=== PATIENT | male | born 1945 | race Caucasian/White ===

== ENCOUNTER 2018-03-21 15:57 | Inpatient (IN) | payer MEDICARE, BC ==
[~2018-03-21] VITALS: Ht 167.6 cm; Wt 90.0 kg
[~2018-03-21 15:57] MED LIST: ALPR-624 PO; ASPI-416 PO; AZEL30SP3 BOTHNARES; BENA40TA73 PO; BISO1TAB14 PO; CLOP75TA15 PO; ESCI5TAB PO; FENO145T36 PO; FLO0.4C PO; LEVO50TA67 PO; NOR5T PO; PANT40TA39 PO; PRAM0.253 PO; ROSU20TA PO; TRAM50TA2 PO
[2018-03-21] MEDS ORDERED: aspirin 81mg tab.chew PO ONE (16:15)
[2018-03-21] MEDS: nitroGLYCERIN 0.4mg SUBLingual tab SL PRN ×2 (16:27→16:36)
[2018-03-21 16:40] LABS: BASOPHILS % (AUTO) 0.2 % (0-1); EOSINOPHILS # (AUTO) 0.2 X10'3 (0-0.9); EOSINOPHILS % (AUTO) 2.4 % (0-6); HEMATOCRIT 41.5 % (42.0-52.0); HEMOGLOBIN 14.3 g/dl (14.0-17.9); LYMPHOCYTES # (AUTO) 1.1 X10'3 (1.1-4.8); LYMPHOCYTES % (AUTO) 12.9 % (21-51); MEAN CORPUSCULAR HEMOGLOBIN 31.4 PG (27.0-31.0); MEAN CORPUSCULAR HGB CONC 34.4 % (33.0-36.5); MEAN CORPUSCULAR VOLUME 91.3 FL (78-98); MEAN PLATELET VOLUME 7.3 FL (7.4-10.4); MONOCYTES # (AUTO) 0.7 X10'3 (0-0.9); MONOCYTES % (AUTO) 8.3 % (2-12); NEUTROPHILS # (AUTO) 6.2 X10'3 (1.8-7.7); NEUTROPHILS % (AUTO) 76.2 % (42-75); PLATELET COUNT 227 X10'3 (140-440); RED BLOOD COUNT 4.55 X10'6 (4.70-6.10); RED CELL DISTRIBUTION WIDTH 13.7 % (11.5-14.5); WHITE BLOOD COUNT 8.2 X10'3 (4.5-11.0)
[2018-03-21 16:50] LABS: ALANINE AMINOTRANSFERASE 42 U/L (12-78); ALBUMIN 3.6 G/DL (3.4-5.0); ALBUMIN/GLOBULIN RATIO 1.3 (1.1-1.5); ALKALINE PHOSPHATASE 92 IU/L (46-116); ANION GAP 10 (8-16); ASPARTATE AMINO TRANSFERASE 17 U/L (10-37); BILIRUBIN,TOTAL 0.3 MG/DL (0.1-1.0); BLOOD UREA NITROGEN 19 MG/DL (7-18); BUN/CREATININE RATIO 15.2 (5.4-32.0); CALCIUM 9.2 MG/DL (8.5-10.1); CHLORIDE 108 MMOL/L (99-107); CREATININE 1.25 MG/DL (0.60-1.10); GLUCOSE 181 MG/DL (70-104); POTASSIUM 4.2 MMOL/L (3.5-5.1); SODIUM 144 MMOL/L (135-145); TOTAL CARBON DIOXIDE 25.9 MMOL/L (24-32); TOTAL PROTEIN 6.4 G/DL (6.4-8.2); eGFR 56 ML/MIN
[2018-03-21 16:57] LABS: PARTIAL THROMBOPLASTIN TIME 24 SECONDS (22-32); PROTHROMBIN TIME 10.2 SECONDS (9.0-12.0)
[2018-03-21] MEDS ORDERED: magnesium Cl slow-release 64mg tablet PO PRN (17:30)
[2018-03-21] MEDS ORDERED: mag hydrox/Alum hydrox/simeth 30ml oral suspension PO PRN (17:30)
[2018-03-21] MEDS ORDERED: acetaminophen 325mg tablet PO PRN (17:30)
[2018-03-21] MEDS ORDERED: potassium Cl 40MEQ/NS 500ml 500 ML IV PRN ×2 (17:30)
[2018-03-21] MEDS ORDERED: nitroGLYCERIN 0.4mg SUBLingual tab SL PRN ×2 (17:30→17:35)
[2018-03-21] MEDS ORDERED: ondansetron/PF 4mg/2ml inj IV PRN (17:30)
[2018-03-21] MEDS ORDERED: magnesium 2GM in 50ml NS 50 ML IV PRN (17:30)
[2018-03-21] MEDS ORDERED: magnesium 4gm in 100ml NS 100 ML IV PRN (17:30)
[2018-03-21] MEDS ORDERED: morphine 2 MG/ML inj. syringe IV PRN ×2 (17:30)
[2018-03-21] MEDS ORDERED: magnesium hydroxide 30ml (MOM) UD suspension PO PRN (17:30)
[2018-03-21] MEDS ORDERED: bisacodyl 10mg suppository rectal RC PRN (17:30)
[2018-03-21] MEDS ORDERED: potassium Cl 20 mEq SR tablet PO PRN ×2 (17:30)
[2018-03-21] MEDS ORDERED: regadenoson 0.4mg/5ml syringe IV PRN (17:35)
[2018-03-21] MEDS ORDERED: metoprolol tartrate 1mg/ml inj IV PRN (17:35)
[2018-03-21] MEDS ORDERED: CAFFEINE CITRATE 60 MG/3 ML injection vial IV PRN (17:35)
[2018-03-21] MEDS ORDERED: pantoprazole 40 MG vial IV SCH (17:35)
[2018-03-21] MEDS: sodium chloride 0.45% 1,000 ML IV SCH (17:59)
[2018-03-21 18:00] LABS: HEMOGLOBIN A1C 6.7 % (4.5-6.2)
[2018-03-21] MEDS: clopidogrel 75mg tablet PO SCH (18:02)
[2018-03-21 19:10] VITALS: BP 175/92
[2018-03-21] MEDS: metoprolol tartrate 25mg tablet PO SCH (21:11)
[2018-03-21] MEDS: docusate sod 100mg capsule PO SCH (21:11)
[2018-03-21] MEDS: heparin, porcine 5000 units/ml vial SQ SCH (21:18)
[2018-03-22] VITALS (16 sets, daily range): BP systolic 126–184; BP diastolic 60–80
[2018-03-22 04:57] LABS: ALANINE AMINOTRANSFERASE 32 U/L (12-78); ALBUMIN 3.1 G/DL (3.4-5.0); ALBUMIN/GLOBULIN RATIO 1.3 (1.1-1.5); ALKALINE PHOSPHATASE 73 IU/L (46-116); ANION GAP 8 (8-16); ASPARTATE AMINO TRANSFERASE 15 U/L (10-37); BILIRUBIN,TOTAL 0.4 MG/DL (0.1-1.0); BLOOD UREA NITROGEN 17 MG/DL (7-18); BUN/CREATININE RATIO 18.3 (5.4-32.0); CALCIUM 8.6 MG/DL (8.5-10.1); CHLORIDE 108 MMOL/L (99-107); CHOL/HDL RATIO 2.9 (0.00-4.99); CHOLESTEROL 126 MG/DL (0-200); CREATININE 0.93 MG/DL (0.60-1.10); GLUCOSE 120 MG/DL (70-104); HDL CHOLESTEROL 44 MG/DL (35-60); LDL CHOLESTEROL 64 MG/DL (50-100); MAGNESIUM 1.9 MG/DL (1.5-2.4); POTASSIUM 4.1 MMOL/L (3.5-5.1); SODIUM 143 MMOL/L (135-145); TOTAL CARBON DIOXIDE 26.8 MMOL/L (24-32); TOTAL PROTEIN 5.5 G/DL (6.4-8.2); TRIGLYCERIDES 148 MG/DL (20-135); TROPONIN I < 0.04 NG/ML (0.0-0.05); eGFR 79 ML/MIN
[2018-03-22] MEDS: docusate sod 100mg capsule PO SCH (07:21)
[2018-03-22] MEDS: clopidogrel 75mg tablet PO SCH (07:21)
[2018-03-22] MEDS: heparin, porcine 5000 units/ml vial SQ SCH (07:23)
[2018-03-22] MEDS ORDERED: pantoprazole 40mg Tablet.DR PO SCH (07:30)
[2018-03-22] MEDS: metoprolol tartrate 25mg tablet PO SCH (07:36)
[2018-03-22] MEDS: sodium chloride 0.45% 1,000 ML IV SCH (07:46)
[2018-03-22] MEDS ORDERED: K and/or MAG REPLACEMENT MC SCH (08:00)
[2018-03-22] MEDS ORDERED: aspirin 81mg tablet.DR PO SCH (08:00)
[2018-03-22] MEDS ORDERED: atorvastatin 20mg tablet PO SCH (08:00)
[2018-03-22] MEDS ORDERED: regadenoson 0.4mg/5ml syringe IV ONE ×2 (08:22→10:05)
[2018-03-22] MEDS ORDERED: CAFFEINE CITRATE 60 MG/3 ML injection vial IV ONE ×2 (08:22→10:05)
[2018-03-22] MEDS ORDERED: LORazepam 2 mg/ml vial IV ONE (08:40)
[2018-03-22] MEDS ORDERED: CHOL10002 PO (12:31)
[2018-03-22] MEDS ORDERED: METF-950 PO (14:19)
[2018-03-22] MEDS ORDERED: NITR0.4T51 SL (14:19)
== END 2018-03-22 16:06 | disposition home or self-care (01) | DRG 392 ==
LOC: ER 15:58 → ED HOLD 17:28 → PCU 3S 19:07
PROVIDERS: ADMIT Internal Medicine; ATTEND Internal Medicine
PROC: 4A02XM4 Measurement of Cardiac Total Activity, External Approach (ICD-10-PCS; principal; 2018-03-22)
PROC: 3E033HZ Introduction of Radioactive Substance into Peripheral Vein, Percutaneous Approach (ICD-10-PCS; 2018-03-22)
DX: K21.9 Gastro-esophageal reflux disease without esophagitis (principal); E11.65 Type 2 diabetes mellitus with hyperglycemia; E78.5 Hyperlipidemia, unspecified; F40.240 Claustrophobia; I25.10 Atherosclerotic heart disease of native coronary artery without angina pectoris; N28.9 Disorder of kidney and ureter, unspecified; F41.9 Anxiety disorder, unspecified; I10 Essential (primary) hypertension; I25.2 Old myocardial infarction; Z95.5 Presence of coronary angioplasty implant and graft; Z79.899 Other long term (current) drug therapy; Z79.82 Long term (current) use of aspirin; Z79.890 Hormone replacement therapy; Z87.442 Personal history of urinary calculi
CPT/HCPCS: 36415; 71045; 78452; 80053; 80061; 82948; 83036; 83735; 83880; 84484; 85025; 85610; 85730; 87070; 93005; 93017; 93306; 99285; A9500; C9113; J1644; J2060; J2270; J7030

== ENCOUNTER 2018-09-14 03:24 | Outpatient (CLI) | payer MEDICARE, BC ==
[~2018-09-14 03:24] MED LIST changes: +CHOL10002 PO; +NITR0.4T51 SL; -ROSU20TA PO; +ROSU20TA2 PO
== END 2018-09-14 23:59 | disposition home or self-care (01) ==
LOC: DIABETIC 03:24
PROVIDERS: ATTEND Family Medicine
DX: E11.9 Type 2 diabetes mellitus without complications (principal); Z71.3 Dietary counseling and surveillance; I10 Essential (primary) hypertension; Z87.891 Personal history of nicotine dependence; Z79.82 Long term (current) use of aspirin
CPT/HCPCS: G0108

== ENCOUNTER 2018-09-29 20:12 | Observation (INO) | payer MEDICARE, BC ==
[~2018-09-29] VITALS: Ht 167.6 cm; Wt 84.0 kg
[2018-09-29] MEDS ORDERED: temazepam 15mg capsule PO PRN (21:00)
[2018-09-29] MEDS ORDERED: LORazepam 2 mg/ml vial IV ONE (21:05)
[2018-09-29] MEDS ORDERED: normal saline 1000ML IV soln IVB ONE (21:05)
[2018-09-29] MEDS ORDERED: ondansetron/PF 4mg/2ml inj IV ONE (21:10)
[2018-09-29 21:38] LABS: ALANINE AMINOTRANSFERASE 43 U/L (12-78); ALBUMIN 3.7 G/DL (3.4-5.0); ALBUMIN/GLOBULIN RATIO 1.3 (1.1-1.5); ALKALINE PHOSPHATASE 65 IU/L (46-116); ANION GAP 7 (8-16); ASPARTATE AMINO TRANSFERASE 28 U/L (10-37); BILIRUBIN,TOTAL 0.2 MG/DL (0.1-1.0); BLOOD UREA NITROGEN 24 MG/DL (7-18); CALCIUM 9.9 MG/DL (8.5-10.1); CHLORIDE 105 MMOL/L (99-107); CREATININE 1.26 MG/DL (0.60-1.10); GLUCOSE 106 MG/DL (70-104); POTASSIUM 4.1 MMOL/L (3.5-5.1); SODIUM 140 MMOL/L (135-145); TOTAL CARBON DIOXIDE 28.3 MMOL/L (24-32); TOTAL PROTEIN 6.6 G/DL (6.4-8.2); eGFR 56 ML/MIN
[2018-09-29] MEDS ORDERED: OXYC-150 PO (21:41)
[2018-09-29] MEDS ORDERED: DICL100G30 TOP (21:41)
[2018-09-29] MEDS ORDERED: FLUO15OI15 TOP (21:41)
[2018-09-29] MEDS ORDERED: FENO145T38 PO (21:41)
[2018-09-29] MEDS ORDERED: CHOL10002 PO (21:41)
[2018-09-29] MEDS ORDERED: CYAN50008 PO (21:41)
[2018-09-29] MEDS ORDERED: BISO1TAB39 PO (21:41)
[2018-09-29] MEDS ORDERED: AMLO2.5T2 PO (21:41)
[2018-09-29] MEDS ORDERED: METF500T PO (21:41)
[2018-09-29] MEDS ORDERED: NITR0.4T51 SL (21:41)
[2018-09-29] MEDS ORDERED: FLO0.4C PO (21:41)
[2018-09-29] MEDS ORDERED: ALPR-624 PO (21:41)
[2018-09-29] MEDS ORDERED: CLOP75TA15 PO (21:41)
[2018-09-29] MEDS ORDERED: TRAM50TA2 PO (21:41)
[2018-09-29] MEDS ORDERED: PRAM0.253 PO (21:41)
[2018-09-29] MEDS ORDERED: PANT20TA3 PO (21:41)
[2018-09-29] MEDS ORDERED: ATRNS (21:41)
[2018-09-29] MEDS ORDERED: ROSU20TA2 PO (21:41)
[2018-09-29] MEDS ORDERED: ESCI5TAB PO (21:41)
[2018-09-29] MEDS ORDERED: ONDA4TAB6 PO (21:41)
[2018-09-29] MEDS ORDERED: BENA20TA76 PO (21:41)
[2018-09-29] MEDS ORDERED: LEVO25TA2 PO (21:41)
[2018-09-29 21:42] LABS: BASOPHILS # (AUTO) 0.1 X10'3 (0-0.2); EOSINOPHILS # (AUTO) 0.1 X10'3 (0-0.9); EOSINOPHILS % (AUTO) 1.4 % (0-6); HEMATOCRIT 40.2 % (42.0-52.0); HEMOGLOBIN 13.6 g/dl (14.0-17.9); LYMPHOCYTES # (AUTO) 1.2 X10'3 (1.1-4.8); LYMPHOCYTES % (AUTO) 12.8 % (21-51); MEAN CORPUSCULAR HEMOGLOBIN 30.2 PG (27.0-31.0); MEAN CORPUSCULAR HGB CONC 33.8 g/dL (33.0-36.5); MEAN CORPUSCULAR VOLUME 89.6 FL (78-98); MEAN PLATELET VOLUME 7.4 FL (7.4-10.4); MONOCYTES # (AUTO) 0.8 X10'3 (0-0.9); MONOCYTES % (AUTO) 8.7 % (2-12); NEUTROPHILS # (AUTO) 6.9 X10'3 (1.8-7.7); NEUTROPHILS % (AUTO) 76.1 % (42-75); PLATELET COUNT 254 X10'3 (140-440); RED BLOOD COUNT 4.48 X10'6 (4.70-6.10); RED CELL DISTRIBUTION WIDTH 13.5 % (11.5-14.5); WHITE BLOOD COUNT 9.1 X10'3 (4.5-11.0)
[2018-09-29 21:45] LABS: INR 1.1 INR; PARTIAL THROMBOPLASTIN TIME 25 SECONDS (22-32); PROTHROMBIN TIME 10.7 SECONDS (9.0-12.0)
[2018-09-29] MEDS ORDERED: haloperidol 1mg tablet PO STA (22:11)
--- NOTE | 2018-09-29 22:52 | NUR ---
PT PLACED ON HOSPITAL BED FOR COMFORT
[2018-09-29] MEDS ORDERED: dextrose ORAL solution 15 GM/59 ML bottle PO PRN ×2 (23:00)
[2018-09-29] MEDS ORDERED: acetaminophen 325mg tablet PO PRN ×2 (23:00)
[2018-09-29] MEDS ORDERED: mag hydrox/Alum hydrox/simeth 30ml oral suspension PO PRN (23:00)
[2018-09-29] MEDS ORDERED: magnesium 2GM in 50ml NS 50 ML IV PRN (23:00)
[2018-09-29] MEDS ORDERED: dextrose 50%-water 50ml dispensing syringe IV PRN ×2 (23:00)
[2018-09-29] MEDS ORDERED: insulin Lispro (HumaLOG) vial - multi-dose SQ SCH (23:00)
[2018-09-29] MEDS ORDERED: potassium Cl 20 mEq SR tablet PO PRN ×2 (23:00)
[2018-09-29] MEDS ORDERED: ondansetron/PF 4mg/2ml inj IV PRN (23:00)
[2018-09-29] MEDS ORDERED: glucagon, human recombinant 1mg kit SUBCUT PRN (23:00)
[2018-09-29] MEDS ORDERED: MESSAGE TO PHARMACY PO ONE (23:00)
[2018-09-29] MEDS ORDERED: magnesium 4gm in 100ml NS 100 ML IV PRN (23:00)
[2018-09-29] MEDS ORDERED: magnesium hydroxide 30ml (MOM) UD suspension PO PRN (23:00)
[2018-09-29] MEDS ORDERED: potassium Cl 40MEQ/NS 500ml 500 ML IV PRN ×2 (23:00)
[2018-09-29] MEDS ORDERED: magnesium Cl slow-release 64mg tablet PO PRN (23:00)
[2018-09-29] MEDS ORDERED: normal saline 1000ml 1,000 ML IV ONE (23:00)
[2018-09-29] MEDS ORDERED: Melatonin 3mg tablet PO SCH (23:05)
--- NOTE | 2018-09-29 23:31 | NUR ---
Patient is resting comfortably in bed. Medications provided and patient requests apple juice which is given. Patient displays no signs of confusion at this time.
--- NOTE | 2018-09-30 01:54 | NUR ---
Patient in room ORTHO 4024. I have received report from MORGAN Martinez and had the opportunity to ask questions and assume patient care.
[2018-09-30 02:16] VITALS: BP 137/62
[2018-09-30 02:50] LABS: BASOPHILS # (AUTO) 0.1 X10'3 (0-0.2); BASOPHILS % (AUTO) 0.9 % (0-1); EOSINOPHILS # (AUTO) 0.2 X10'3 (0-0.9); EOSINOPHILS % (AUTO) 2.6 % (0-6); HEMATOCRIT 36.3 % (42.0-52.0); HEMOGLOBIN 12.3 g/dl (14.0-17.9); LYMPHOCYTES # (AUTO) 1.3 X10'3 (1.1-4.8); LYMPHOCYTES % (AUTO) 17.8 % (21-51); MEAN CORPUSCULAR HEMOGLOBIN 30.5 PG (27.0-31.0); MEAN CORPUSCULAR VOLUME 89.6 FL (78-98); MONOCYTES # (AUTO) 0.7 X10'3 (0-0.9); MONOCYTES % (AUTO) 9.3 % (2-12); NEUTROPHILS # (AUTO) 5.1 X10'3 (1.8-7.7); NEUTROPHILS % (AUTO) 69.4 % (42-75); PLATELET COUNT 201 X10'3 (140-440); RED BLOOD COUNT 4.05 X10'6 (4.70-6.10); RED CELL DISTRIBUTION WIDTH 13.7 % (11.5-14.5); WHITE BLOOD COUNT 7.3 X10'3 (4.5-11.0)
[2018-09-30 03:04] LABS: HEMOGLOBIN A1C 6.6 % (4.5-6.2)
[2018-09-30 03:06] LABS: ALBUMIN 3.1 G/DL (3.4-5.0); ANION GAP 6 (8-16); BLOOD UREA NITROGEN 19 MG/DL (7-18); BUN/CREATININE RATIO 15.8 (5.4-32.0); CHLORIDE 107 MMOL/L (99-107); GLUCOSE 126 MG/DL (70-104); MAGNESIUM 1.3 MG/DL (1.5-2.4); POTASSIUM 3.8 MMOL/L (3.5-5.1); SODIUM 141 MMOL/L (135-145); TOTAL CARBON DIOXIDE 28.4 MMOL/L (24-32); eGFR 59 ML/MIN
[2018-09-30 05:20] LABS: CLARITY,URINE CLEAR (Clear); COLOR,URINE YELLOW (Yellow); GLUCOSE, URINE NEGATIVE (Neg); KETONES,URINE NEGATIVE (Neg); LEUKOCYTE ESTERASE ,URINE NEGATIVE (Neg); NITRITES, URINE NEGATIVE (Neg); OCCULT BLOOD,URINE TRACE-INTACT (Neg); PH,URINE 5.5 (4.8-8.0); PROTEIN,URINE NEGATIVE (Neg); UROBILINOGEN,URINE 0.2 E.U/dL (0.2-1.0)
[2018-09-30 05:21] LABS: UA COLLECTION TYPE NON-SPECIFIED
[2018-09-30 05:26] LABS: BACTERIA,URINE NONE SEEN /HPF (Neg); HYALINE CASTS 0-3 /LPF (NEGATIVE); MUCUS STRANDS NONE SEEN /LPF (Neg); RBC,URINE 0-2 /HPF (0-2); SQUAMOUS EPITHELIAL CELL,UR FEW /LPF (FEW); WBC,URINE 0-4 /HPF (0-4)
[2018-09-30 06:00] VITALS: BP 138/64
[2018-09-30] MEDS ORDERED: fluocinonide 0.05% 15gm ointment TP PRN (06:25)
[2018-09-30] MEDS ORDERED: nitroGLYCERIN 0.4mg SUBLingual tab SL PRN (06:25)
[2018-09-30] MEDS ORDERED: traMADol 50MG tablet PO PRN (06:25)
[2018-09-30] MEDS ORDERED: ondansetron 4mg rapidly disintigrating tab PO PRN (06:25)
[2018-09-30] MEDS ORDERED: oxyCODONE/APAP 10/325mg tablet PO PRN (06:25)
--- NOTE | 2018-09-30 06:30 | NUR ---
I have received patient report from Bernadette MORA
--- NOTE | 2018-09-30 06:48 | NUR ---
Problems reprioritized. Patient report given, questions answered & plan of care reviewed with MORGAN Hernandez.
[2018-09-30] MEDS ORDERED: ipratropium 0.06% nasal spray 15ml NS SCH (08:00)
[2018-09-30] MEDS ORDERED: lisinopril 20mg tablet PO SCH (08:00)
[2018-09-30] MEDS ORDERED: enoxaparin 40mg/0.4ml syringe SQ SCH (08:00)
[2018-09-30] MEDS ORDERED: ALPRAZolam 0.5mg tablet PO SCH (08:00)
[2018-09-30] MEDS ORDERED: vitamin D (cholecalciferol) 1,000 unit tablet PO SCH (08:00)
[2018-09-30] MEDS ORDERED: atenolol 50mg tablet PO SCH (08:00)
[2018-09-30] MEDS ORDERED: HYDROchlorothiazide 25mg tablet PO SCH (08:00)
[2018-09-30] MEDS ORDERED: K and/or MAG REPLACEMENT MC SCH (08:00)
[2018-09-30] MEDS ORDERED: amLODIPine 5mg tablet PO SCH (08:00)
[2018-09-30] MEDS ORDERED: HYDROCHLOROTHIAZIDE PO SCH (08:00)
[2018-09-30] MEDS ORDERED: fenofibrate 145mg tablet PO SCH (08:00)
[2018-09-30] MEDS ORDERED: atorvastatin 20mg tablet PO SCH (08:00)
[2018-09-30] MEDS ORDERED: clopidogrel 75mg tablet PO SCH (08:00)
[2018-09-30] MEDS ORDERED: levoTHYROXINE 25mcg tablet PO SCH (08:00)
[2018-09-30] MEDS ORDERED: tamsulosin 0.4mg capsule PO SCH (08:00)
[2018-09-30] MEDS ORDERED: pantoprazole 40mg Tablet.DR PO SCH (08:00)
[2018-09-30] MEDS ORDERED: BISOPROL PO SCH (08:00)
[2018-09-30] MEDS ORDERED: citalopram 20mg tablet PO SCH (08:00)
[2018-09-30 10:00] VITALS: BP 168/65
--- NOTE | 2018-09-30 11:08 | NUR ---
DM consult: Patient's A1c is 6.6; DM ed not warranted at this time. Will continue to follow. Addendum: 09/30/18 at [address] Amended: Links added.
[2018-09-30] MEDS ORDERED: LORazepam 2 mg/ml vial IV ONE (11:35)
[2018-09-30 14:00] VITALS: BP_SYST 136; BP_SYST 141; BP_SYST 158; BP_DIAS 61; BP_DIAS 63; BP_DIAS 65
[2018-09-30] MEDS ORDERED: METF-950 PO (14:54)
--- NOTE | 2018-09-30 15:30 | NUR ---
PATIENT DISCHARGED WITH FAMILY AND HAD ALL BELONGINGS. PATIENT AND FAMILY TOLD TO FOLLOW UP WITH PCP, DR CHI, AND DR BLANCO, [facility]. PATIENT ALREADY HAS METFORMIN AT HOME SO I DIDN'T HAVE TO CALL IN IT FOR THE PATIENT.
[2018-09-30] MEDS ORDERED: MAGN400T6 PO (17:00)
--- NOTE | 2018-09-30 17:05 | NUR ---
DR WHITMAN ORDERED MAGNESIUM FOR PATIENT, I CALLED IT IN AND NOTIFIED FAMILY. PATIENTS MAG WAS LOW TODAY WAS REPLACED 1 TIME THIS MORNING FOR 1.3
[2018-09-30] MEDS ORDERED: Melatonin 3mg tablet PO SCH (21:00)
[2018-09-30] MEDS ORDERED: pramipexole 0.25mg tablet PO SCH (21:00)
[2018-09-30] MEDS ORDERED: insulin glargine (Lantus) pen - multi-dose SQ SCH (21:00)
== END 2018-09-30 15:30 | disposition home health service (06) ==
LOC: ER 20:13 → ED HOLD 22:58 → ORTHO 4S 09-30 01:44
PROVIDERS: ADMIT Hospitalist; ATTEND Family Medicine
DX: R42 Dizziness and giddiness (principal); R07.89 Other chest pain; I25.10 Atherosclerotic heart disease of native coronary artery without angina pectoris; G45.9 Transient cerebral ischemic attack, unspecified; I63.9 Cerebral infarction, unspecified; F41.9 Anxiety disorder, unspecified; I10 Essential (primary) hypertension; I21.9 Acute myocardial infarction, unspecified; E11.9 Type 2 diabetes mellitus without complications; Z98.61 Coronary angioplasty status; Z86.59 Personal history of other mental and behavioral disorders; Z87.442 Personal history of urinary calculi; Z95.5 Presence of coronary angioplasty implant and graft; Z88.5 Allergy status to narcotic agent
CPT/HCPCS: 36415; 70450; 71045; 72125; 80048; 80053; 81001; 82948; 83036; 83735; 84145; 84484; 85025; 85610; 85730; 87070; 93005; 96361; 96372; 96374; 96375; 96376; 99284; G0378; J2060; J2405; J1650; J1815

== ENCOUNTER 2018-12-06 09:34 | Outpatient (CLI) | payer MEDICARE, BC ==
[2018-12-06] VITALS (17 sets, daily range): BP systolic 110–145; BP diastolic 63–84
[~2018-12-06 09:34] MED LIST changes: +AMLO2.5T2 PO; -ASPI-416 PO; +ATRNS; -AZEL30SP3 BOTHNARES; +BENA20TA76 PO; -BENA40TA73 PO; -BISO1TAB14 PO; +BISO1TAB39 PO; +CYAN50008 PO; -FENO145T36 PO; +FENO145T38 PO; +FLUO15OI15 TOP; +LEVO25TA2 PO; -LEVO50TA67 PO; +MAGN400T6 PO; -NOR5T PO; +ONDA4TAB6 PO; +OXYC-150 PO; +PANT20TA3 PO; -PANT40TA39 PO; -TRAM50TA2 PO
== END 2018-12-06 23:59 | disposition home or self-care (01) ==
LOC: CARD DIAG 09:34
PROVIDERS: ATTEND Internal Medicine Interventional Cardiology
DX: R42 Dizziness and giddiness (principal); I10 Essential (primary) hypertension; E11.9 Type 2 diabetes mellitus without complications
CPT/HCPCS: 93660

== ENCOUNTER 2019-05-08 11:08 | Emergency (ER) | payer MEDICARE, BC ==
[~2019-05-08] VITALS: Ht 167.6 cm; Wt 84.1 kg
[~2019-05-08 11:08] MED LIST changes: +MAGN400T28 PO; -MAGN400T6 PO
[2019-05-08] MEDS ORDERED: TRAM50TA2 PO (11:43)
[2019-05-08] MEDS ORDERED: HYDROcodone/acetaminophen 10/325mg tab PO ONE (11:55)
[2019-05-08] MEDS ORDERED: HYDR-4353 PO ×2 (11:55→12:20)
--- NOTE | 2019-05-08 12:02 | NUR ---
YASMIN SPEARSS IN ROOM TO APPLY SPLINT ON LEFT LOWER LEG AND CRUTCH TRAINING.
[2019-05-08 12:38] VITALS: BP 132/70
== END 2019-05-08 12:39 | disposition home or self-care (01) ==
LOC: ER 11:09
DX: S86.812A Strain of other muscle(s) and tendon(s) at lower leg level, left leg, initial encounter (principal); I25.10 Atherosclerotic heart disease of native coronary artery without angina pectoris; I10 Essential (primary) hypertension; I25.2 Old myocardial infarction; E11.9 Type 2 diabetes mellitus without complications; Z88.6 Allergy status to analgesic agent; Z88.8 Allergy status to other drugs, medicaments and biological substances; Z79.899 Other long term (current) drug therapy; Z86.73 Personal history of transient ischemic attack (TIA), and cerebral infarction without residual deficits; Z90.49 Acquired absence of other specified parts of digestive tract; Z98.890 Other specified postprocedural states; Z98.61 Coronary angioplasty status; Z87.442 Personal history of urinary calculi; X58.XXXA Exposure to other specified factors, initial encounter; Y93.89 Activity, other specified; Y92.89 Other specified places as the place of occurrence of the external cause; Y99.0 Civilian activity done for income or pay
CPT/HCPCS: 29505; 99283

== ENCOUNTER 2019-10-01 12:15 | Observation (INO) | payer MEDICARE, BC ==
[~2019-10-01] VITALS: Ht 167.6 cm; Wt 84.1 kg
[2019-10-01] MEDS ORDERED: aspirin 81mg tab.chew PO ONE (12:45)
[2019-10-01 12:51] LABS: BASOPHILS % (AUTO) 0.5 % (0-1); EOSINOPHILS # (AUTO) 0.2 X10'3 (0-0.9); HEMATOCRIT 42.2 % (42.0-52.0); HEMOGLOBIN 14.2 g/dl (14.0-17.9); LYMPHOCYTES # (AUTO) 1.1 X10'3 (1.1-4.8); LYMPHOCYTES % (AUTO) 13.9 % (21-51); MEAN CORPUSCULAR HEMOGLOBIN 30.4 PG (27.0-31.0); MEAN CORPUSCULAR HGB CONC 33.5 g/dL (33.0-36.5); MEAN CORPUSCULAR VOLUME 90.7 FL (78-98); MEAN PLATELET VOLUME 7.1 FL (7.4-10.4); MONOCYTES # (AUTO) 0.6 X10'3 (0-0.9); MONOCYTES % (AUTO) 8.2 % (2-12); NEUTROPHILS % (AUTO) 75.4 % (42-75); PLATELET COUNT 212 X10'3 (140-440); RED BLOOD COUNT 4.65 X10'6 (4.70-6.10); RED CELL DISTRIBUTION WIDTH 13.8 % (11.5-14.5); WHITE BLOOD COUNT 7.9 X10'3 (4.5-11.0)
[2019-10-01] MEDS ORDERED: nitroGLYCERIN 0.4mg SUBLingual tab SL STA (13:02)
[2019-10-01 13:04] LABS: ALANINE AMINOTRANSFERASE 55 U/L (12-78); ALBUMIN 3.5 G/DL (3.4-5.0); ALBUMIN/GLOBULIN RATIO 1.3 (1.1-1.5); ALKALINE PHOSPHATASE 73 IU/L (46-116); ANION GAP 9 (8-16); ASPARTATE AMINO TRANSFERASE 30 U/L (10-37); BILIRUBIN,TOTAL 0.3 MG/DL (0.1-1.0); BLOOD UREA NITROGEN 16 MG/DL (7-18); BUN/CREATININE RATIO 14.7 (5.4-32.0); CALCIUM 9.2 MG/DL (8.5-10.1); CHLORIDE 106 MMOL/L (99-107); CREATININE 1.09 MG/DL (0.60-1.10); GLUCOSE 254 MG/DL (70-104); POTASSIUM 3.7 MMOL/L (3.5-5.1); SODIUM 139 MMOL/L (135-145); TOTAL CARBON DIOXIDE 23.6 MMOL/L (24-32); TOTAL PROTEIN 6.2 G/DL (6.4-8.2); eGFR 66 ML/MIN
[2019-10-01] MEDS ORDERED: LEVO50TA8 PO (13:31)
[2019-10-01] MEDS ORDERED: TRAM50TA2 PO (13:31)
[2019-10-01] MEDS ORDERED: TOLT4CAP14 PO (13:31)
[2019-10-01] MEDS ORDERED: DULO20CA18 PO (13:31)
[2019-10-01] MEDS ORDERED: AMLO10TA13 PO (13:31)
[2019-10-01] MEDS ORDERED: BENA40TA8 PO (13:31)
[2019-10-01] MEDS ORDERED: nitroGLYCERIN 0.4mg SUBLingual tab SL ONE (14:10)
[2019-10-01] MEDS ORDERED: magnesium 4gm in 100ml NS 100 ML IV PRN (15:50)
[2019-10-01] MEDS ORDERED: HYDROcodone/acetaminophen 10/325mg tab PO PRN (15:50)
[2019-10-01] MEDS ORDERED: potassium CL 10mEq/100ml bag 100 ML IV PRN ×2 (15:50)
[2019-10-01] MEDS ORDERED: magnesium 2GM in 50ml NS 50 ML IV PRN (15:50)
[2019-10-01] MEDS ORDERED: HYDROcodone/acetaminophen 5mg/325mg tablet PO PRN (15:50)
[2019-10-01] MEDS ORDERED: dextrose 50%-water 50ml dispensing syringe IV PRN ×2 (15:50)
[2019-10-01] MEDS ORDERED: acetaminophen 325mg tablet PO PRN ×2 (15:50)
[2019-10-01] MEDS ORDERED: nitroGLYCERIN 0.4mg SUBLingual tab SL PRN ×2 (15:50→16:05)
[2019-10-01] MEDS ORDERED: MESSAGE TO PHARMACY PO ONE (15:50)
[2019-10-01] MEDS ORDERED: magnesium Cl slow-release 64mg tablet PO PRN (15:50)
[2019-10-01] MEDS ORDERED: magnesium hydroxide 30ml (MOM) UD suspension PO PRN (15:50)
[2019-10-01] MEDS ORDERED: ondansetron/PF 4mg/2ml inj IV PRN (15:50)
[2019-10-01] MEDS ORDERED: glucagon, human recombinant 1mg kit SUBCUT PRN (15:50)
[2019-10-01] MEDS ORDERED: morphine 2 MG/ML inj. syringe IV PRN (15:50)
[2019-10-01] MEDS ORDERED: mag hydrox/Alum hydrox/simeth 30ml oral suspension PO PRN (15:50)
[2019-10-01] MEDS ORDERED: potassium Cl 20 mEq SR tablet PO PRN ×2 (15:50)
[2019-10-01] MEDS ORDERED: dextrose ORAL solution 15 GM/59 ML bottle PO PRN ×2 (15:50)
[2019-10-01] MEDS ORDERED: insulin Lispro (HumaLOG) vial - multi-dose SQ SCH (15:50)
[2019-10-01 16:25] LABS: HEMOGLOBIN A1C 8.3 % (4.5-6.2)
[2019-10-01 17:30] VITALS: BP 180/90
[2019-10-01] MEDS: oxyCODONE/APAP 10/325mg tablet PO PRN ×2 (17:32→23:59)
[2019-10-01] MEDS: cloNIDine 0.1 mg tablet PO PRN ×2 (17:33→23:59)
--- NOTE | 2019-10-01 17:53 | NUR ---
Patient in room ORTHO 4015. I have received report from Sarah MORA and had the opportunity to ask questions and assume patient care.
--- NOTE | 2019-10-01 17:53 | NUR ---
Admitted to floor, brought up on gurney by ED staff. Patient abulated from bowman to bed without assistance. Vital signs stable, no distress. B/P 180/90, Catapres (clonodine 0.1mg) given as well as Percocert 10/325 for headache 7/10 pain. Pt on tele #13, room air, saline locked 20 ga left forearm. Last BM this am. Accu check 97. faxed tray order CC to dietary.Patient oriented to room & call light. Pt educated on use of call light. MRSA swab completed & 2 RN skin check.
--- NOTE | 2019-10-01 18:00 | NUR ---
Problems reprioritized. Patient report given, questions answered & plan of care reviewed with Jennifer MORA.
--- NOTE | 2019-10-01 18:50 | NUR ---
Patient in room ORTHO 4015. I have received report from Spring MORA and had the opportunity to ask questions and assume patient care.
[2019-10-01] MEDS: K and/or MAG REPLACEMENT MC SCH (19:12)
[2019-10-01] MEDS: magnesium oxide 400mg tablet PO SCH (20:24)
[2019-10-01] MEDS: morphine 2 MG/ML inj. syringe IV PRN (20:24)
[2019-10-01] MEDS: pramipexole 0.25mg tablet PO SCH (20:24)
[2019-10-01] MEDS: pantoprazole 40mg Tablet.DR PO SCH (20:24)
[2019-10-01 20:31] VITALS: BP 166/83
[2019-10-01] MEDS: insulin glargine (Lantus) pen - multi-dose SQ SCH (21:00)
[2019-10-01 21:30] VITALS: BP 159/78
[2019-10-02 01:15] VITALS: BP 144/77
[2019-10-02 01:15] LABS: EOSINOPHILS # (AUTO) 0.3 X10'3 (0-0.9); HEMOGLOBIN 12.9 g/dl (14.0-17.9); MEAN CORPUSCULAR HEMOGLOBIN 30.4 PG (27.0-31.0); MEAN CORPUSCULAR HGB CONC 33.4 g/dL (33.0-36.5); MEAN CORPUSCULAR VOLUME 91.1 FL (78-98); MEAN PLATELET VOLUME 7.2 FL (7.4-10.4); MONOCYTES # (AUTO) 0.7 X10'3 (0-0.9); MONOCYTES % (AUTO) 10.1 % (2-12); NEUTROPHILS # (AUTO) 4.6 X10'3 (1.8-7.7)
[2019-10-02 01:16] LABS: ANION GAP 6 (8-16); BLOOD UREA NITROGEN 14 MG/DL (7-18); BUN/CREATININE RATIO 13.6 (5.4-32.0); CALCIUM 9.1 MG/DL (8.5-10.1); CHLORIDE 107 MMOL/L (99-107); CHOL/HDL RATIO 4.9 (0.00-4.99); CHOLESTEROL 194 MG/DL (0-200); CREATININE 1.03 MG/DL (0.60-1.10); GLUCOSE 155 MG/DL (70-104); HDL CHOLESTEROL 40 MG/DL (35-60); LDL CHOLESTEROL 130 MG/DL (50-100); MAGNESIUM 1.7 MG/DL (1.5-2.4); POTASSIUM 3.8 MMOL/L (3.5-5.1); SODIUM 140 MMOL/L (135-145); TOTAL CARBON DIOXIDE 27.3 MMOL/L (24-32); TRIGLYCERIDES 166 MG/DL (20-135); eGFR 70 ML/MIN
[2019-10-02 01:17] LABS: BASOPHILS % (AUTO) 0.6 % (0-1); EOSINOPHILS % (AUTO) 4.1 % (0-6); HEMATOCRIT 38.7 % (42.0-52.0); LYMPHOCYTES # (AUTO) 1.4 X10'3 (1.1-4.8); LYMPHOCYTES % (AUTO) 20.1 % (21-51); NEUTROPHILS % (AUTO) 65.1 % (42-75); PLATELET COUNT 210 X10'3 (140-440); RED BLOOD COUNT 4.25 X10'6 (4.70-6.10); RED CELL DISTRIBUTION WIDTH 13.9 % (11.5-14.5)
[2019-10-02 05:30] VITALS: BP 126/69
--- NOTE | 2019-10-02 06:23 | NUR ---
Problems reprioritized. Patient report given, questions answered & plan of care reviewed with Sofiya MORA.
[2019-10-02] MEDS ORDERED: HYDROchlorothiazide 25mg tablet PO SCH (08:00)
[2019-10-02] MEDS: K and/or MAG REPLACEMENT MC SCH ×2 (08:00→20:00)
[2019-10-02] MEDS: atorvastatin 20mg tablet PO SCH (08:07)
[2019-10-02] MEDS: magnesium oxide 400mg tablet PO SCH ×2 (08:07→20:19)
[2019-10-02] MEDS: vitamin D (cholecalciferol) 1,000 unit tablet PO SCH (08:07)
[2019-10-02] MEDS: clopidogrel 75mg tablet PO SCH (08:07)
[2019-10-02] MEDS: fenofibrate 145mg tablet PO SCH (08:07)
[2019-10-02] MEDS: ESCITALOPRAM OXALATE 5 MG TABLET PO SCH (08:07)
[2019-10-02] MEDS: enoxaparin 40mg/0.4ml syringe SUBCUT SCH (08:08)
[2019-10-02] MEDS: pantoprazole 40mg Tablet.DR PO SCH ×2 (08:19→20:19)
[2019-10-02] MEDS: tamsulosin 0.4mg capsule PO SCH (08:19)
[2019-10-02] MEDS: oxyCODONE/APAP 10/325mg tablet PO PRN ×2 (08:19→14:37)
--- NOTE | 2019-10-02 09:19 | NUR ---
Page sent to Dr. Hines PAGER ID: [phone] MESSAGE: [phone] Lion Krueger: Pt mentioned that he would be getting a stress test today, no orders as of this time. Is this correct? Thanks, Sofiya wallace [phone]
[2019-10-02] MEDS ORDERED: nitroGLYCERIN 0.4mg SUBLingual tab SL PRN (09:25)
[2019-10-02] MEDS ORDERED: metoprolol tartrate 1mg/ml inj IV PRN (09:25)
[2019-10-02] MEDS ORDERED: aminophylline 250mg/10ml inj. IV PRN (09:25)
[2019-10-02] MEDS ORDERED: regadenoson 0.4mg/5ml syringe IV ONE (09:25)
[2019-10-02 10:00] VITALS: BP 126/80
--- NOTE | 2019-10-02 10:30 | NUR ---
Patient in room ORTHO 4015B. I have received report from DARREN River RN and had the opportunity to ask questions and assume patient care.
--- NOTE | 2019-10-02 14:10 | NUR ---
Stress test cancelled. BP 173/106, HR 102. After ten minutes BP 191/93 HR 102. Hospitalist, Dr. Hines notified. Orders to give AM BP meds now along with Catapress. Reschedule test for tomorrow. Anxiolytic ordered from AM 4/7 prior to test. MORGAN Muhammad notified.
[2019-10-02] MEDS: atenolol 50mg tablet PO SCH (14:22)
[2019-10-02] MEDS: cloNIDine 0.1 mg tablet PO PRN (14:23)
--- NOTE | 2019-10-02 14:25 | NUR ---
pt returned from tian scan, unable to complete BP 191/93 HR 102 per ANALIA Duffy RN...reassessed BP 164/91 HR 88, provided BP meds and Catapres per MD order and Percocet, pt reporting throbbing headache. Will continue to monitor.
--- NOTE | 2019-10-02 16:39 | NUR ---
DM consult, patient with A1c of 8.3, no prior knowledge of DM. Needs written DM education handout with verbal review. Attempted bedside visit and patient not in room at that time, will reattempt prior to discharge. Addendum: 10/02/19 at [address] Amended: Links added.
--- NOTE | 2019-10-02 17:30 | NUR ---
Page Sent PAGER ID: [phone] MESSAGE: [phone] [id number]...CAN I GET AN ORDER FOR AN ANXIOLYTIC FOR PT BEFORE HIS MOY SCAN FOR TOMORROW AM?
[2019-10-02] MEDS: LORazepam 0.5 MG tablet PO ONE (17:50)
[2019-10-02 18:00] VITALS: BP 140/68
--- NOTE | 2019-10-02 18:05 | NUR ---
Received patient report from MORGAN Tuttle. Assumed patient care.
--- NOTE | 2019-10-02 18:09 | NUR ---
MIGUEL A River RN...REVIEWED AND AGREE WITH CHARTING
--- NOTE | 2019-10-02 18:09 | NUR ---
Problems reprioritized. Patient report given, questions answered & plan of care reviewed with MORGAN PERKINS.
--- NOTE | 2019-10-02 18:13 | NUR ---
Problems reprioritized. Patient report given, questions answered & plan of care reviewed with Stephenie MORA.
[2019-10-02] MEDS: morphine 2 MG/ML inj. syringe IV PRN (19:33)
[2019-10-02] MEDS: pramipexole 0.25mg tablet PO SCH (20:19)
[2019-10-02] MEDS: insulin glargine (Lantus) pen - multi-dose SQ SCH (21:00)
[2019-10-02 22:00] VITALS: BP 164/76
[2019-10-03] VITALS (11 sets, daily range): BP systolic 136–193; BP diastolic 58–83
[2019-10-03] MEDS: morphine 2 MG/ML inj. syringe IV PRN (01:16)
[2019-10-03] MEDS: ESCITALOPRAM OXALATE 5 MG TABLET PO SCH (04:38)
--- NOTE | 2019-10-03 04:44 | NUR ---
Pt requested to have lexapro early because it is helpful with anxiety. 0800 med given early.
[2019-10-03] MEDS: cloNIDine 0.1 mg tablet PO PRN ×2 (05:34→09:56)
--- NOTE | 2019-10-03 06:05 | NUR ---
Patient in room ORTHO 4015. I have received report from Eden MORA and had the opportunity to ask questions and assume patient care.
[2019-10-03 06:09] LABS: BASOPHILS # (AUTO) 0.1 X10'3 (0-0.2); BASOPHILS % (AUTO) 0.9 % (0-1); EOSINOPHILS # (AUTO) 0.3 X10'3 (0-0.9); EOSINOPHILS % (AUTO) 3.4 % (0-6); HEMATOCRIT 39.7 % (42.0-52.0); HEMOGLOBIN 13.3 g/dl (14.0-17.9); LYMPHOCYTES # (AUTO) 1.2 X10'3 (1.1-4.8); LYMPHOCYTES % (AUTO) 15.5 % (21-51); MEAN CORPUSCULAR HEMOGLOBIN 30.1 PG (27.0-31.0); MEAN CORPUSCULAR HGB CONC 33.4 g/dL (33.0-36.5); MEAN CORPUSCULAR VOLUME 90.1 FL (78-98); MEAN PLATELET VOLUME 7.2 FL (7.4-10.4); MONOCYTES % (AUTO) 12.4 % (2-12); NEUTROPHILS # (AUTO) 5.3 X10'3 (1.8-7.7); NEUTROPHILS % (AUTO) 67.8 % (42-75); PLATELET COUNT 221 X10'3 (140-440); RED BLOOD COUNT 4.41 X10'6 (4.70-6.10); RED CELL DISTRIBUTION WIDTH 13.5 % (11.5-14.5); WHITE BLOOD COUNT 7.7 X10'3 (4.5-11.0)
--- NOTE | 2019-10-03 06:14 | NUR ---
Patient report given, questions answered and plan of care reviewed with MORGAN Rojas.
[2019-10-03 06:16] LABS: ALBUMIN 3.1 G/DL (3.4-5.0); ANION GAP 6 (8-16); BLOOD UREA NITROGEN 17 MG/DL (7-18); BUN/CREATININE RATIO 16.7 (5.4-32.0); CALCIUM 9.4 MG/DL (8.5-10.1); CHLORIDE 106 MMOL/L (99-107); CREATININE 1.02 MG/DL (0.60-1.10); GLUCOSE 156 MG/DL (70-104); MAGNESIUM 1.9 MG/DL (1.5-2.4); POTASSIUM 3.9 MMOL/L (3.5-5.1); SODIUM 140 MMOL/L (135-145); TOTAL CARBON DIOXIDE 28.5 MMOL/L (24-32); eGFR 71 ML/MIN
[2019-10-03] MEDS: enoxaparin 40mg/0.4ml syringe SUBCUT SCH (07:34)
[2019-10-03] MEDS: atorvastatin 20mg tablet PO SCH (07:35)
[2019-10-03] MEDS: vitamin D (cholecalciferol) 1,000 unit tablet PO SCH (07:35)
[2019-10-03] MEDS: fenofibrate 145mg tablet PO SCH (07:35)
[2019-10-03] MEDS: clopidogrel 75mg tablet PO SCH (07:35)
[2019-10-03] MEDS: atenolol 50mg tablet PO SCH (07:46)
[2019-10-03] MEDS ORDERED: atenolol 50mg tablet PO SCH (08:00)
[2019-10-03] MEDS ORDERED: HYDROchlorothiazide 25mg tablet PO SCH (08:00)
[2019-10-03] MEDS: K and/or MAG REPLACEMENT MC SCH (08:00)
--- NOTE | 2019-10-03 08:15 | NUR ---
sent a page to hospitalist because case assistant called about having pt d/c orders for yesterday cancelled and to make an addendum to yesterdays progress note
--- NOTE | 2019-10-03 09:15 | NUR ---
per lexiscan/nuc med, pt decided not to have lexiscan this morning because of his anxiety, then pt finally calmed down and said that he would have the lexiscan, prema called and asked to 'give pt his one time dose of ativan and check pts bp 30 min after ativan admin, if bp is over 160 please admin pt prn colonidine so pt is able to have his lexiscan'
[2019-10-03] MEDS: LORazepam 0.5 MG tablet PO ONE (09:20)
[2019-10-03] MEDS: magnesium oxide 400mg tablet PO SCH (10:23)
[2019-10-03] MEDS: tamsulosin 0.4mg capsule PO SCH (10:23)
[2019-10-03] MEDS: pantoprazole 40mg Tablet.DR PO SCH (10:23)
[2019-10-03] MEDS ORDERED: LORazepam 0.5 MG tablet PO ONE (10:50)
[2019-10-03] MEDS ORDERED: regadenoson 0.4mg/5ml syringe IV ONE (12:10)
[2019-10-03] MEDS ORDERED: amLODIPine 5mg tablet PO SCH (12:15)
[2019-10-03] MEDS ORDERED: AMLO5TAB4 PO (12:17)
[2019-10-03] MEDS: oxyCODONE/APAP 10/325mg tablet PO PRN (13:33)
--- NOTE | 2019-10-03 15:31 | NUR ---
DM Consult: A1C 8.3. Pt seen by RD for written DM ed w/ RD contact information provided. Pt s/p stress test this AM and reports was DX pre-diabetes and was made newly aware of DX Diabetes A1C 8.6 during PCP visit last week. Pt reports PCP ordered new DM med which pt will start following discharge though pt is unaware of medication name. Pt tired during RD visit and requested RD to return this afternoon. Upon f/u RD visit; pt currently sleeping unable to wake at this time. RN does report pt has had quite taxing day today; pt would benefit from verbal DM ed reinforcement prior to discharge. Addendum: 10/03/19 at [address] Amended: Links added.
--- NOTE | 2019-10-03 18:14 | NUR ---
MIGUEL A RAZO RN...REVIEWED AND AGREE WITH CHARTING
--- NOTE | 2019-10-03 18:32 | NUR ---
Called in new RX: Amlodipine Besylate (Norvasc) 5 mg #30, 1 Tablet PO daily. No refills. [facility] on [place] (due to [facility] closed @ 6pm) Spoke with Ulysses @ [phone]
== END 2019-10-03 18:10 | disposition home or self-care (01) ==
LOC: ER 12:16 → ED HOLD 15:50 → ORTHO 4S 17:24
PROVIDERS: ADMIT Internal Medicine; ATTEND Internal Medicine
DX: R07.89 Other chest pain (principal); I25.10 Atherosclerotic heart disease of native coronary artery without angina pectoris; I25.2 Old myocardial infarction; I10 Essential (primary) hypertension; E78.5 Hyperlipidemia, unspecified; E11.9 Type 2 diabetes mellitus without complications; F41.0 Panic disorder [episodic paroxysmal anxiety]; E66.01 Morbid (severe) obesity due to excess calories; Z86.73 Personal history of transient ischemic attack (TIA), and cerebral infarction without residual deficits; Z87.442 Personal history of urinary calculi; Z90.49 Acquired absence of other specified parts of digestive tract; Z95.5 Presence of coronary angioplasty implant and graft; Z79.82 Long term (current) use of aspirin; Z79.899 Other long term (current) drug therapy; Z88.5 Allergy status to narcotic agent; Z88.8 Allergy status to other drugs, medicaments and biological substances
CPT/HCPCS: 36415; 71045; 78451; 80048; 80053; 80061; 82948; 83036; 83735; 83880; 84484; 85025; 87081; 93005; 96372; 96374; 96375; 96376; 99285; A9500; G0378; J2270; J2405; J2785; 78452; J1650; J1815

== ENCOUNTER 2022-10-10 05:22 | Emergency (ER) | payer BC ==
[~2022-10-10] VITALS: Ht 167.6 cm; Wt 84.1 kg
[~2022-10-10 05:22] MED LIST changes: -ALPR-624 PO; +AMLO10TA13 PO; -AMLO2.5T2 PO; +AMLO5TAB4 PO; -BENA20TA76 PO; +BENA40TA90 PO; -CYAN50008 PO; +CYAN50009 PO; +DULO20CA18 PO; -LEVO25TA2 PO; +LEVO50TA8 PO; -MAGN400T28 PO; +MAGN400T56 PO; -ONDA4TAB6 PO; +PANT20TA18 PO; -PANT20TA3 PO; +TOLT4CAP28 PO; +TRAM50TA2 PO
[2022-10-10] MEDS ORDERED: oxymetazoline 15 ML nasal spray NS ONE (05:30)
[2022-10-10] MEDS ORDERED: LIDOCAINE 2% (20mg/ml) w/EPINEPHRINE 1:200,000-PF 10 ML inj. SQ ONE (06:15)
[2022-10-10] MEDS ORDERED: LIDOCAINE 2%/EPI 1:100,000 inj. Multi-dose 20 ML VIAL SQ ONE (06:20)
[2022-10-10] MEDS ORDERED: LIDOCAINE 2% w/EPI 1:200,000 multi-dose 20ml VIAL SQ ONE (06:25)
--- NOTE | 2022-10-10 07:20 | NUR ---
Dr. Bishop at bedside.
[2022-10-10 08:43] VITALS: BP 134/68
== END 2022-10-10 08:39 | disposition home or self-care (01) ==
LOC: ER 05:22
DX: R04.0 Epistaxis (principal); I25.10 Atherosclerotic heart disease of native coronary artery without angina pectoris; I10 Essential (primary) hypertension; I25.2 Old myocardial infarction; E11.9 Type 2 diabetes mellitus without complications; Z87.442 Personal history of urinary calculi; Z90.49 Acquired absence of other specified parts of digestive tract; Z98.890 Other specified postprocedural states; Z95.5 Presence of coronary angioplasty implant and graft; Z88.5 Allergy status to narcotic agent; Z79.899 Other long term (current) drug therapy
CPT/HCPCS: 30901; 99284

== ENCOUNTER 2024-10-26 18:47 | Inpatient (IN) | payer MEDICARE, BC ==
[~2024-10-26] VITALS: Ht 167.6 cm; Wt 89.5 kg
[~2024-10-26 18:47] MED LIST changes: -AMLO5TAB4 PO; -ATRNS; +BENA40TA72 PO; -BENA40TA90 PO; +BISO-2 PO; -BISO1TAB39 PO; +CLON1PAT14 TOP; -CLOP75TA15 PO; +CLOP75TA34 PO; -DULO20CA18 PO; -ESCI5TAB PO; +FAMO20TA8 PO; -FENO145T38 PO; +FENO160T PO; +FINA5TAB11 PO; -FLO0.4C PO; -FLUO15OI15 TOP; +ISOS30TA84 PO; -MAGN400T56 PO; -OXYC-150 PO; -PANT20TA18 PO; +PANT40TA54 PO; -PRAM0.253 PO; +PRAM0.258 PO; -ROSU20TA2 PO; +ROSU20TA98 PO; +SITA25TA3 PO; +TAMS-55 PO
[2024-10-26 19:18] LABS: BASOPHILS % (AUTO) 0.2 % (0-1); EOSINOPHILS # (AUTO) 0.9 X10'3 (0-0.9); EOSINOPHILS % (AUTO) 6.9 % (0-6); HEMATOCRIT 36.4 % (42.0-52.0); LYMPHOCYTES # (AUTO) 1.4 X10'3 (1.1-4.8); LYMPHOCYTES % (AUTO) 10.6 % (21-51); MEAN CORPUSCULAR HEMOGLOBIN 29.6 PG (27.0-31.0); MEAN CORPUSCULAR HGB CONC 32.9 g/dL (33.0-36.5); MEAN CORPUSCULAR VOLUME 89.9 FL (78-98); MEAN PLATELET VOLUME 7.4 FL (7.4-10.4); MONOCYTES # (AUTO) 1.5 X10'3 (0-0.9); MONOCYTES % (AUTO) 11.8 % (2-12); NEUTROPHILS # (AUTO) 9.1 X10'3 (1.8-7.7); NEUTROPHILS % (AUTO) 70.5 % (42-75); PLATELET COUNT 186 X10'3 (140-440); RED BLOOD COUNT 4.05 X10'6 (4.70-6.10); RED CELL DISTRIBUTION WIDTH 15.2 % (11.5-14.5); WHITE BLOOD COUNT 12.9 X10'3 (4.5-11.0)
[2024-10-26] MEDS: aspirin 81mg tab.chew PO ONE ×2 (19:25→21:36)
[2024-10-26 19:29] LABS: ALANINE AMINOTRANSFERASE 23 U/L (12-78); ALBUMIN/GLOBULIN RATIO 1.2 (1.1-1.5); ALKALINE PHOSPHATASE 63 IU/L (46-116); ANION GAP 2 (8-16); ASPARTATE AMINO TRANSFERASE 12 U/L (10-37); BILIRUBIN,TOTAL 0.2 MG/DL (0.1-1.0); BLOOD UREA NITROGEN 27 MG/DL (7-18); BUN/CREATININE RATIO 23.7 (10.0-20.0); CALCIUM 9.1 MG/DL (8.5-10.1); CHLORIDE 110 MMOL/L (99-107); CREATININE 1.14 MG/DL (0.60-1.10); GLUCOSE 98 MG/DL (70-104); POTASSIUM 4.2 MMOL/L (3.5-5.1); SODIUM 142 MMOL/L (135-145); TOTAL PROTEIN 5.6 G/DL (6.4-8.2); eCRCL 46 ML/MIN; eGFR 62 ML/MIN
[2024-10-26 19:33] LABS: PRO BRAIN NATRIURETIC PEPTIDE 1302 PG/ML (0-450)
--- NOTE | 2024-10-26 20:02 | RADIOLOGY REPORT ---
CHEST RADIOGRAPH Indication: CP Technique: Single frontal view of the chest was obtained Comparison: DI CHEST,SINGLE VIEW on DOS: 03/06/23, CHEST,SINGLE VIEW on DOS: 10/01/19, CHEST,SINGLE VIEW on DOS: 09/29/18 FINDINGS: Lines and Tubes: None Lungs: No focal consolidation. Pleura: No effusion. No pneumothorax. Cardiomediastinal contours: Unremarkable Bones: No acute osseous abnormality. IMPRESSION: 1. No acute cardiopulmonary disease.
--- NOTE | 2024-10-26 21:20 | Physician Documentation ---
History of Present Illness ~ Chief Complaint: Chest Pain Stated Complaint: CHEST PAIN Time Seen by MD: 21:03 OK to notify your PCP?: No Primary Medical Doctor: DR Indu FOX, DR XIONG Source: patient, family, RN notes reviewed Mode of Arrival: POV, Ambulatory Exam Limitations: no limitations HPI 79 year old male, with a history of coronary artery disease, distant HI with stents, diabetes, and hypertension, presents complaining of episodic crushing chest pain beginning yesterday. Pain comes on with exertion, such as shoveling dirt or moving the trash cans. Pain resolves within 2-3 minutes while resting and after taking nitroglycerin. Pain is the same as his previous heart attack. He also reports some sweatiness with the episodes of chest pain, as well as occasional pain radiating to the left neck. He has not had any significant shortness of breath but his blood sugar has been uncontrolled for the last 1.5 months. Patient's roller cleaner is Dr. Fox, who recently performed an echocardiogram to evaluate need for valve replacement. He was last stress test was a few months ago, and was negative. He was taken off of aspirin and Plavix several months ago. Medication Reconciliation Allergies: Coded Allergies: hydrocodone (Verified Allergy, Unknown, HALLUCINATIONS, 10/26/24) Scheduled Amlodipine Besylate (Amlodipine Besylate), 1 TAB PO DAILY, (Reported) Benazepril HCl (Benazepril HCl), 1 TAB PO DAILY, (Reported) Bisoprolol Fumarate/Hctz (Bisoprolol-Hctz 10-6.25 mg Tab), 1 TAB PO DAILY, (Reported) Cholecalciferol (Vitamin D3) (Vitamin D3), 1 TAB PO DAILY, (Reported) Cyanocobalamin (Vitamin B-12) (Vitamin B12), 1 TAB PO DAILY, (Reported) Famotidine (Famotidine), 1 TAB PO DAILY, (Reported) Fenofibrate (Fenofibrate), 1 TAB PO DAILY, (Reported) Finasteride (Finasteride), 1 TAB PO DAILY, (Reported) Levothyroxine Sodium (Levothyroxine Sodium), 1 TAB PO DAILY@0700, (Reported) Pantoprazole Sodium (Pantoprazole Sodium), 1 TAB PO BID, (Reported) Rosuvastatin Calcium (Rosuvastatin Calcium), 1 TAB PO HS, (Reported) Tamsulosin Hcl* (Flomax*), 2 CAPSULE PO DAILY, (Reported) Tolterodine Tartrate (Tolterodine Tartrate ER), 1 CAP PO DAILY, (Reported) Scheduled PRN Nitroglycerin SL* (Nitrostat SL*), 1 TAB SL Q5MIN PRN for Chest pain Q5min PRNx3-call MD, (Reported) Pramipexole Di-Hcl (Pramipexole Dihydrochloride), 3 TAB PO HS PRN for restless legs, (Reported) Tramadol Hcl (Tramadol Hcl), 1 TAB PO Q6H PRN for low back pain, (Reported) Discontinued Medications Clonidine (Clonidine), 1 PATCH TOP Q7D, (Reported) Discontinued Reason: patient no longer taking Clopidogrel Bisulfate (Clopidogrel), 1 TAB PO DAILY, (Reported) Discontinued Reason: patient no longer taking Isosorbide Mononitrate (Isosorbide Mononitrate Er), 1 TAB PO DAILY, (Reported) Discontinued Reason: patient no longer taking Sitagliptin Phosphate* (Januvia*), 1 TAB PO DAILY, (Reported) Discontinued Reason: patient no longer taking Past Medical History Past Medical History: CVA/TIA/Stroke, Coronary Artery Disease, Hypertension, Myocardial Infarction, Kidney Stones, Diabetes, Thyroid (unspecified) Past Surgical History: angioplasty, cholecystectomy, orthopedic surgeries Alcohol Use: None Drug Use: none Lives with: Spouse Lives In: Home Occupation: retired Review of Systems All Other Systems at this time: Reviewed and Negative ROS As stated above in the HPI, otherwise all systems are reviewed and negative. Physical Exam Vital Signs: RN Vital Signs have been reviewed: Yes, Temperature: 97.9, Source: Oral, Heart Rate: 59, Respiratory Rate: 18, BP: 175/76, Pulse Oximetry: 97, Weight: 89.500 Oxygen Flow Rate: 0 Pulse Oximetry Reflects: adequate oxygenation Physical Exam General: The patient is well developed, well nourished, nontoxic appearing and is in no acute distress. Skin: Jennette, warm and dry with no rashes. HEENT: Head was normocephalic and atraumatic. Chest: Clear to auscultation bilaterally without wheezes, rales or rhonchi. No accessory muscle use. No dullness to percussion. Heart: 3/6 pulmonic murmur. Rate regular and rhythmic. S1, S2. Palpation of the chest wall was normal. No rubs or thrills. Abdomen: Soft, nontender and nondistended. Positive bowel sounds. No guarding or rebound. Extremities: No cyanosis, clubbing or edema. The patient moves all extremities. Pulses were equal and symmetric. Neurologic: Motor and sensation grossly intact. Cranial nerves II-XII grossly intact. A & O x4. Psychologic: Normal mood and affect. No agitation. Progress Progress Note 2129: Case discussed with Dr. Cuenca, internal medicine physician, who agrees to evaluate the patient for admission. Results/Orders Reviewed/noted all lab results: Yes Results/Orders Medications Received in ER Medications (Trade) Dose Ordered Sig/Mine Route PRN Reason Start Time Stop Time Status Last Admin Dose Admin (aspirin 81MG chew tablet) 324 mg ONCE ONCE PO 10/26/24 19:15 10/26/24 19:16 DC 10/26/24 19:25 324 MG (aspirin 81MG chew tablet) 324 mg ONCE ONCE PO 10/26/24 21:20 10/26/24 21:23 DC 10/26/24 21:36 324 MG Vital Signs 10/26/24 10/26/24 10/26/24 10/26/24 19:06 20:05 20:10 20:34 Temp 97.9 97.9 Pulse 62 58 59 Resp 16 15 16 18 B/P (MAP) 184/73 151/73 (99) 175/76 (109) Pulse Ox 96 96 97 O2 Flow Rate 0 0 10/26/24 21:38 Pulse 58 Resp 18 B/P (MAP) 169/73 (105) Pulse Ox 96 Laboratory Tests Test 10/26/24 18:55 10/26/24 20:50 10/26/24 21:53 White Blood Count 12.9 H Red Blood Count 4.05 L Hemoglobin 12.0 L Hematocrit 36.4 L Mean Corpuscular Volume 89.9 Mean Corpuscular Hemoglobin 29.6 Mean Corpuscular Hemoglobin Concent 32.9 L Red Cell Distribution Width 15.2 H Platelet Count 186 Mean Platelet Volume 7.4 Neutrophils (%) (Auto) 70.5 Lymphocytes (%) (Auto) 10.6 L Monocytes (%) (Auto) 11.8 Eosinophils (%) (Auto) 6.9 H Basophils (%) (Auto) 0.2 Neutrophils # (Auto) 9.1 H Lymphocytes # (Auto) 1.4 Monocytes # (Auto) 1.5 H Eosinophils # (Auto) 0.9 Basophils # (Auto) 0.0 CBC Comment Prothrombin Time 10.5 INR International Normalized Ratio 1.0 Activated Partial Thromboplast Time 25 Coagulation Comments Sodium Level 142 Potassium Level 4.2 Chloride Level 110 H Carbon Dioxide Level 30.0 Anion Gap 2 L Blood Urea Nitrogen 27 H Creatinine 1.14 H Estimated GFR/1.73 m2 62 BUN/Creatinine Ratio 23.7 H Glucose Level 98 Hemoglobin A1c 6.5 H Calcium Level 9.1 Magnesium Level 1.8 Total Bilirubin 0.2 Aspartate Amino Transf (AST/SGOT) 12 Alanine Aminotransferase (ALT/SGPT) 23 Alkaline Phosphatase 63 Troponin I High Sensitivity 14 14 15 Pro-B-Type Natriuretic Peptide 1302 H Total Protein 5.6 L Albumin 3.0 L Globulin 2.6 L Albumin/Globulin Ratio 1.2 Chemistry Comments Troponin I High Sens Percent Delta 0 7 Troponin I Hi Sens Absolute Change 0 1 EKG/XRAY/CT/US/VASC/MRI EKG : Additional Comment 6857: EKG interpreted by me to show NSR at a rate of 66bpm. Good R wave pro gression. QTc 430ms. No STEMI. Chest X-Ray : Additional Comments 2109: 1 view CXR interpreted by me to show no infiltrates, no effusion, normal cardiac silhouette. CHEST RADIOGRAPH Indication: CP Technique: Single frontal view of the chest was obtained Comparison: DI CHEST,SINGLE VIEW on DOS: 03/06/23, CHEST,SINGLE VIEW on DOS: 10/01/19, CHEST,SINGLE VIEW on DOS: 09/29/18 FINDINGS: Lines and Tubes: None Lungs: No focal consolidation. Pleura: No effusion. No pneumothorax. Cardiomediastinal contours: Unremarkable Bones: No acute osseous abnormality. IMPRESSION: 1. No acute cardiopulmonary disease. Reviewed by me Heart Score: Heart Score Response (Comments) Value History Highly Suspicious 2 EKG Repolarization Disturb 1 Age >65 2 Risk Factors >3 or Hx ASHD 2 Troponin Normal limit 0 Total 7 Medical Decision Making Additional info obtained from: old records Departure Time of Disposition: 21:32 Disposition: 09 ADMITTED INPATIENT Admitted to Inpatient Unit: yes, to hospitalist Impression: Primary Impression: Unstable angina Condition: Fair Education Educated: Patient Educated regarding: diagnosis, treatment, need for follow up Signature Scribe Signature: Scribed for Ulysses Hung MD by Vannesa Jack . 10/26/24 21:31 Attestation: [email or web address] The note accurately reflects work and decisions made by me.Ulysses Hung MD 10/26/24 21:19 ULYSSES HUNG MD October 26, 2024 21:20 VANNESA KINSEY October 26, 2024 21:37
[2024-10-26 21:32] LABS: MAGNESIUM 1.8 MG/DL (1.5-2.4)
[2024-10-26 21:37] LABS: APTT 25 SECONDS (22-32); PROTHROMBIN TIME 10.5 SECONDS (9.0-12.0)
[2024-10-26] MEDS ORDERED: magnesium sulf-water 4G/100mL 100 ML IV PRN (22:25)
[2024-10-26] MEDS ORDERED: magnesium hydroxide 30ml (MOM) UD suspension PO PRN (22:25)
[2024-10-26] MEDS ORDERED: potassium Cl 20 mEq SR tablet PO PRN ×2 (22:25)
[2024-10-26] MEDS ORDERED: potassium Cl 40MEQ/1/2NS 520ml 520 ML IV PRN (22:25)
[2024-10-26] MEDS ORDERED: magnesium Cl slow-release 64mg tablet PO PRN (22:25)
[2024-10-26] MEDS ORDERED: mag hydrox/Alum hydrox/simeth 30ml oral suspension PO PRN (22:25)
[2024-10-26] MEDS ORDERED: ondansetron/PF 4mg/2ml inj IV PRN (22:25)
[2024-10-26] MEDS: HEPARIN DRIP-CARDIAC**PHARMACIST-TO-DOSE IV ONE (22:25)
[2024-10-26] MEDS ORDERED: acetaminophen 325mg tablet PO PRN (22:25)
[2024-10-26] MEDS ORDERED: magnesium sulf-water 2g/50mL 50 ML IV PRN (22:25)
[2024-10-26 22:52] LABS: HEMOGLOBIN A1C 6.5 % (4.5-6.2)
[2024-10-27] VITALS (24 sets, daily range): BP systolic 110–192; BP diastolic 58–97; PULSE 58–85; RESP 13–20; TEMP 97.2–98.7; O2SAT 95–100
[2024-10-27] MEDS: lisinopril 10 MG tablet PO ONE (00:02)
[2024-10-27] MEDS: heparin 10,000 units/1 ML INJ IV ONE (00:13)
[2024-10-27] MEDS: heparin 25,000 UNIT/250ml bag 250 ML IV PRN (00:17)
[2024-10-27] MEDS: MESSAGE TO NURSING IV ONE ×4 (00:18→13:49)
[2024-10-27] MEDS: clopidogrel 300mg tablet PO ONE (00:50)
[2024-10-27] MEDS: morphine 2 MG/ML inj. syringe IV PRN (00:53)
--- NOTE | 2024-10-27 01:33 | HISTORY AND PHYSICAL-Residence ---
History & Physical Providers to CC Resident Creating Document: RINKU CUENCA, RES ~ History of Present Illness Primary Medical Doctor: DR Indu LAMBERT, DR XIONG Reason for Admit\Complaint: Unstable angina History of Present Illness 79 years old male past medical history of hypertension, diabetes mellitus, hyperlipidemia, hypothyroidism, coronary artery disease status post stenting currently to the ED with chief complaint of left-sided chest pain that has been on and off for the past two weeks. He describes the pain to be crushing type of pain that is on and off on the left side of his chest radiating to his left upper extremity and jaw. Mentioned that the pain is triggered by exertion and is relieved by rest and nitro. The pain has been getting worse and is being exacerbated by a minimal exertion and lasting longer. The patient also complains of associated nausea, palpitations and increased perspiration when the pain is triggered. Today the pain started after the patient was getting his trash can back from the sidewalk back to his house. Patient currently complains only of mild chest discomfort in the left side of his chest, nonradiating and denied any associated shortness of breath, palpitations, nausea, vomiting or any other concerns or complaints at the moment. Patient stated that his staff midwife/apprenticeship director Dr. Lambert, had a recent echocardiogram done to evaluate for aortic stenosis. He is not sure about the results of the echocardiogram. The patient also reports that he had a stress test done a approximately more than a year ago which was negative for any reversible ischemia. Patient also reports that he was on aspirin and Plavix in the past which were discontinued eight months ago by his staff midwife/apprenticeship director. Allergies: Coded Allergies: hydrocodone (Verified Allergy, Unknown, HALLUCINATIONS, 10/26/24) Home Medications Home Medications Active Reported Fenofibrate 160 Mg Tablet 1 Tab PO DAILY Levothyroxine Sodium 50 Mcg Tablet 1 Tab PO DAILY@0700 Famotidine 20 Mg Tablet 1 Tab PO DAILY Amlodipine Besylate 10 Mg Tablet 1 Tab PO DAILY Bisoprolol-Hctz 10-6.25 mg Tab (Bisoprolol Fumarate/Hctz) 10 Mg-6.25 Mg Tablet 1 Tab PO DAILY Tramadol Hcl (Tramadol HCl) 50 Mg Tablet 1 Tab PO Q6H PRN Benazepril HCl 40 Mg Tablet 1 Tab PO DAILY Pramipexole Dihydrochloride (Pramipexole Di-Hcl) 0.25 Mg Tablet 3 Tab PO HS PRN Flomax* (Tamsulosin HCl) 0.4 Mg Cap.sr.24h 2 Capsule PO DAILY Tolterodine Tartrate ER (Tolterodine Tartrate) 4 Mg Cap.er.24h 1 Cap PO DAILY Finasteride 5 Mg Tablet 1 Tab PO DAILY Pantoprazole Sodium 40 Mg Tablet.dr 1 Tab PO BID Rosuvastatin Calcium 20 Mg Tablet 1 Tab PO HS Nitrostat SL* (Nitroglycerin) 0.4 Mg Tablet 1 Tab SL Q5MIN PRN Vitamin D3 (Cholecalciferol (Vitamin D3)) 1,000 Unit Tablet 1 Tab PO DAILY 30 Days Vitamin B12 (Cyanocobalamin (Vitamin B-12)) 5,000 Mcg Tab.rapdis 1 Tab PO DAILY Past Medical History Past Medical History Hypotension, diabetes mellitus, hyperlipidemia, hypothyroidism, CAD Past Surgical History Surgical History Comment Stenting of the heart in 2004 and 2008 Past Social History Social History Comment Lives at home with his . Denies smoking or alcohol consumption. Smoking: Non-Smoker Alcohol Use: None Drug Use: None Lives with: Spouse Lives In: Home Occupation: retired ROS All Other Systems: Reviewed and Negative ROS As stated above in the HPI, otherwise all systems are reviewed and negative. Exam Vitals: Vital Signs Date Time Temp Pulse Resp B/P (MAP) Pulse Ox O2 Delivery O2 Flow Rate FiO2 10/27/24 00:53 15 10/27/24 00:02 56 10/26/24 23:30 183/73 (109) 98 10/26/24 20:05 97.9 0 General: General: Awake and Alert, no acute distress. HEENT: Conjunctiva pink, Sclera clear, Mucus Membranes moist. Neck: Supple without masses and tenderness. Resp: Unlabored. Lungs clear to auscultation bilaterally. Heart: Regular Rate and rhythm, normal S1 and S2 with the ejection systolic murmur heard in the aortic area radiating to his carotids. Abdomen: Soft and non tender no organomegaly Extremities: No cyanosis,clubbing or edema. Skin: Warm and Dry. Neurology: No focal motor or sensory deficits. Diagnostic Data Last Recorded Lab Results: 10/26/24 1855 10/26/24 1855 Diagnostic Data: Laboratory Tests Test 10/26/24 18:55 Prothrombin Time 10.5 SECONDS (9.0-12.0) INR International Normalized Ratio 1.0 INR Activated Partial Thromboplast Time 25 SECONDS (22-32) Coagulation Comments Advance Care Planning Advanced Care planning: Add on additional 30 min Additional Plan ACS-unstable angina Serial trending of troponin has been negative. EKG- sinus rhythm with a heart rate of 66. No ST segment changes. Patient's staff midwife/apprenticeship director is Dr. Lambert. He states that he had echocardiogram done one week ago. Patient has mildly elevated proBNP of 1302. Get echocardiogram results from Dr. lambert's office which was done one week ago. Last stress test was more than a year ago. We will plan Lexiscan in the a.m.. Consult the patient's staff midwife/apprenticeship director Dr. Lambert. Currently started the patient on IV heparin drip. He is also getting p.o. aspirin and Plavix. Sublingual nitroglycerin for pain. IV morphine for uncontrolled/severe pain. The patient's heart rate on telemetry monitoring is in the high 50s and hence holding off on beta dana. Continue telemetry monitoring. Follow up with the A1c and lipid panel. Hypertension He is on amlodipine, benazepril, bisoprolol fumarate/hydrochlorothiazide at home. We will restart home medications once his condition stabilizes. Continue to monitor vitals. Hyperlipidemia Hypothyroidism Follow up with the lipid panel TSH levels. CODE STATUS: Full code DVT prophylaxis: IV heparin GI prophylaxis: None Diet: NPO Disposition: Admitting the patient for further evaluation management of acute chest pain most likely secondary to unstable angina. We will schedule Christen stress test tomorrow in the a.m.. Consult the patient's staff midwife/apprenticeship director Dr. Lambert. Rinku Cuenca MD Internal Medicine Resident, PGY-2 Attestation Discussed with resident, agree with assessment and plan spent 35 minutes in care Date of Service: October 27, 2024 Billing Provider: JAMES LAMBERT MD, SURYA PRATIK, RES October 27, 2024 01:33 JAMES LAMBERT MD October 27, 2024 03:04
[2024-10-27] MEDS: amLODIPine 5mg tablet PO ONE ×2 (01:52→03:14)
[2024-10-27] MEDS ORDERED: metoprolol tartrate 1mg/ml inj IV PRN (03:10)
[2024-10-27] MEDS ORDERED: nitroGLYCERIN 0.4mg SUBLingual tab SL PRN ×2 (03:10→07:40)
[2024-10-27] MEDS ORDERED: aminophylline 250mg/10ml inj. IV PRN (03:10)
[2024-10-27 03:20] LABS: BASOPHILS # (AUTO) 0.1 X10'3 (0-0.2); BASOPHILS % (AUTO) 0.5 % (0-1); EOSINOPHILS # (AUTO) 1.1 X10'3 (0-0.9); EOSINOPHILS % (AUTO) 9.2 % (0-6); HEMATOCRIT 35.6 % (42.0-52.0); HEMOGLOBIN 11.8 g/dl (14.0-17.9); LYMPHOCYTES # (AUTO) 1.7 X10'3 (1.1-4.8); MEAN CORPUSCULAR HEMOGLOBIN 29.9 PG (27.0-31.0); MEAN CORPUSCULAR HGB CONC 33.1 g/dL (33.0-36.5); MEAN CORPUSCULAR VOLUME 90.2 FL (78-98); MEAN PLATELET VOLUME 7.4 FL (7.4-10.4); MONOCYTES # (AUTO) 1.5 X10'3 (0-0.9); MONOCYTES % (AUTO) 11.9 % (2-12); NEUTROPHILS % (AUTO) 64.4 % (42-75); PLATELET COUNT 185 X10'3 (140-440); RED BLOOD COUNT 3.95 X10'6 (4.70-6.10); RED CELL DISTRIBUTION WIDTH 15.8 % (11.5-14.5); WHITE BLOOD COUNT 12.5 X10'3 (4.5-11.0)
[2024-10-27 03:25] LABS: ALANINE AMINOTRANSFERASE 21 U/L (12-78); ALBUMIN/GLOBULIN RATIO 1.2 (1.1-1.5); ALKALINE PHOSPHATASE 65 IU/L (46-116); ANION GAP 2 (8-16); ASPARTATE AMINO TRANSFERASE 11 U/L (10-37); BILIRUBIN,TOTAL 0.4 MG/DL (0.1-1.0); BLOOD UREA NITROGEN 25 MG/DL (7-18); BUN/CREATININE RATIO 22.3 (10.0-20.0); CALCIUM 8.7 MG/DL (8.5-10.1); CHLORIDE 107 MMOL/L (99-107); CHOL/HDL RATIO 2.2 (0.00-4.99); CHOLESTEROL 110 MG/DL (0-200); CREATININE 1.12 MG/DL (0.60-1.10); GLUCOSE 93 MG/DL (70-104); HDL CHOLESTEROL 51 MG/DL (35-60); LDL CHOLESTEROL 51 MG/DL (50-100); MAGNESIUM 1.9 MG/DL (1.5-2.4); POTASSIUM 3.7 MMOL/L (3.5-5.1); SODIUM 141 MMOL/L (135-145); TOTAL CARBON DIOXIDE 31.7 MMOL/L (24-32); TOTAL PROTEIN 5.5 G/DL (6.4-8.2); TRIGLYCERIDES 60 MG/DL (20-135); eCRCL 47 ML/MIN; eGFR 63 ML/MIN
[2024-10-27 05:48] LABS: BILIRUBIN,URINE NEGATIVE (Neg); CLARITY,URINE CLEAR (Clear); COLOR,URINE YELLOW (Yellow); GLUCOSE, URINE NEGATIVE (Neg); KETONES,URINE NEGATIVE (Neg); LEUKOCYTE ESTERASE ,URINE NEGATIVE (Neg); NITRITES, URINE NEGATIVE (Neg); OCCULT BLOOD,URINE NEGATIVE (Neg); PROTEIN,URINE NEGATIVE (Neg)
[2024-10-27 05:55] LABS: UA COLLECTION TYPE CLN CATCH MIDSTREAM
--- NOTE | 2024-10-27 06:43 | ELECTROCARDIOGRAPH REPORT ---
[facility] Test Date: 2024-10-26 Test Time: 18:54:53 Pat Name: MANE GIRON Department: EMERGENCY ROOM Room: [place] [address] B Gender: M Service Order Taker: M[place] : 1945 Requested By: THONG ESTRADA Order Number: [id number] Reading MD: Dr. Thong Estrada Measurements Intervals [place] Rate: 66 P: -3 DC: 216 QRS: 31 QRSD: 86 T: 41 QT: 410 QTc: 430 Interpretive Statements Sinus rhythm Borderline prolonged DC interval Probable left atrial enlargement Electronically Signed On 10-27-2024 22:15:[address] Thong Estrada Please click the below link to view image of tracing.
[2024-10-27] MEDS: heparin 10,000 units/1 ML INJ IV PRN ×2 (07:15→13:34)
[2024-10-27] MEDS ORDERED: pramipexole 0.25mg tablet PO PRN (07:40)
[2024-10-27] MEDS: levoTHYROXINE 25mcg tablet PO SCH (07:55)
[2024-10-27] MEDS: cholecalciferol (vitamin D3) 1,000 unit (25mcg) tablet PO SCH (08:00)
[2024-10-27] MEDS: cyanocobalamin 500mcg tablet PO SCH (08:00)
[2024-10-27] MEDS: amLODIPine 5mg tablet PO SCH (08:00)
[2024-10-27] MEDS: famotidine 20mg tablet PO SCH (08:00)
[2024-10-27] MEDS: atorvastatin 20mg tablet PO SCH (08:00)
[2024-10-27] MEDS: docusate sod 100mg capsule PO SCH (08:00)
[2024-10-27] MEDS: oxybutynin 5mg tablet PO SCH (08:00)
[2024-10-27] MEDS: K and/or MAG REPLACEMENT MC SCH (08:00)
[2024-10-27] MEDS: lisinopril 20mg tablet PO SCH (08:00)
[2024-10-27] MEDS: finasteride 5mg tablet PO SCH (08:00)
[2024-10-27] MEDS: tamsulosin 0.4mg capsule PO SCH (08:00)
[2024-10-27] MEDS: fenofibrate 145mg tablet PO SCH (08:30)
[2024-10-27] MEDS: aspirin 81mg tab.chew PO SCH (08:30)
[2024-10-27 08:41] LABS: THYROID STIMULATING HORMONE 3.51 ulU/ml (0.34-4.50)
[2024-10-27] MEDS: regadenoson 0.4mg/5ml syringe IV PRN (09:32)
[2024-10-27] MEDS: PERFLUTREN PROTEIN-A MICROSPHR (Optison) 0.22 MG/ML 3ML VIAL IV ONE (09:40)
[2024-10-27] MEDS ORDERED: heparin 25,000 UNIT/250ml bag 250 ML IV PRN (11:35)
[2024-10-27] MEDS ORDERED: heparin 10,000 units/1 ML INJ IV ONE (11:35)
--- NOTE | 2024-10-27 11:40 | ELECTROCARDIOGRAPH REPORT ---
[facility] Test Date: 2024-10-27 Test Time: 11:36:59 Pat Name: MANE GIRON Department: [facility] Patient ID: [facility]-[id number] Room: [place] [address] B Gender: M Stamp Collector: LEROY : 1945 Requested By: EMELIA DECKER Order Number: [id number] Reading MD: Dr. JYOTI Mittal Measurements Intervals [place] Rate: 64 P: 11 IA: 224 QRS: 36 QRSD: 86 T: 30 QT: 428 QTc: 442 Interpretive Statements Sinus rhythm Prolonged IA interval Probable left atrial enlargement Electronically Signed On 10-27-2024 16:14:[address] JYOTI Mittal Please click the below link to view image of tracing.
--- NOTE | 2024-10-27 11:51 | RADIOLOGY REPORT ---
EXAM: NM NM MOY SCAN; DATE: 10/27/2024 08:40 AM HISTORY: Unstable angina COMPARISON: NM NM MOY SCAN on DOS: 03/07/23, NM MOY SCAN on DOS: 10/02/19, NM MOY SCAN on DOS: 8 TECHNIQUE: A single day protocol was utilized. Resting examination was performed with intravenous ad ministration of 7.8 mCi of technetium 99m MyoView. A gated stress examination was performed with the intravenous administration of 38 mCi of technetium 99m MyoView and 0.4 mg/mL Lexiscan. SPECT imagin g performed at rest followed by same day gated SPECT imaging following pharmacologic stress with 0.4 mg/ml Regadenoson (Lexiscan) IV. FINDINGS: Large severe reversible defect in the inferior wall and adjacent inferolateral wall involving the ape x noted. There is normal left ventricular wall motion. No transient ischemic dilatation. The TID rat io is 1.19. The computer calculates a global left ventricular ejection fraction of 53 %, which is above the 51% l ower limit of normal. IMPRESSION: 1. Large severe acute ischemia involving the inferior and inferolateral solano with involvement of the apex. 2. Unremarkable left ventricular wall motion. 3. Normal left ventricular ejection fraction of 53 %.
[2024-10-27] MEDS: HEPARIN DRIP-CARDIAC**PHARMACIST-TO-DOSE IV ONE (12:16)
[2024-10-27] MEDS: nitroGLYCERIN 0.4mg SUBLingual tab SL PRN (13:30)
[2024-10-27] MEDS ORDERED: verapamil 2.5 mg/ml inj IV ONE (15:01)
[2024-10-27] MEDS ORDERED: iohexol 350MG/ML 100ml bottle IV ONE ×2 (15:01→15:37)
[2024-10-27] MEDS ORDERED: nitroGLYCERIN 500mcg/5mL D5W 5 ML IV ONE (15:01)
[2024-10-27] MEDS ORDERED: LIDOcaine 1% (10mg/ml) 2ml vial ONE (15:01)
[2024-10-27] MEDS ORDERED: midazolam 1 mg/ML 2ml injection ONE ×2 (15:01→15:46)
[2024-10-27] MEDS ORDERED: fentaNYL/PF 50MCG/1 ML 2ML syringe ONE (15:01)
[2024-10-27] MEDS ORDERED: heparin 1,000unit/ml 10ml vial 10 ML ONE (15:01)
[2024-10-27] MEDS ORDERED: ticagrelor 90mg tablet ONE (15:40)
[2024-10-27] MEDS ORDERED: ondansetron/PF 4mg/2ml inj IV PRN (16:35)
[2024-10-27] MEDS ORDERED: proCHLORperazine 10 MG/2 ml inj IV PRN (16:35)
--- NOTE | 2024-10-27 16:56 | CARDIAC CATH REPORT ---
Post Cath Report Providers to CC CC: DEYANIRA CARR MD; JOHN MEDINA MD ~ Date of Procedure: October 27, 2024 Pre-Procedure Diagnosis: Abnormal Stress Test History: Htn, Prior PCI (include date) (2004, 2008) CCS Anginal Class: III NYFA Functional Class: II Procedure Preformed: Left Heart Cath, PTCA / Stent Post Procedure DX Same?: Yes Findings Findings: Procedure Date: 10/27/24 Procedure(s): 1. Selective Right and Left Coronary Angiography 2. Percutaneous coronary intervention of the OM2 branch of the left circumflex coronary artery with a 2.5 mm x 26 mm Anthony Leroy drug eluting stent 3. Conscious Sedation Monitoring for 30 minutes Pre-Cardiac Catheterization Diagnosis: Abnormal Stress test with a large area of inferior and inferolateral wall reversible ischemia also involving the LV apex Post-Cardiac Catheterization Diagnosis: Severe single vessel filling station attendant(s): John Medina MD ([facility]) Indication: The patient is an 79 year old male with a past medical history significant for CAD s/p prior PCI in 2004 and 2008, hypertension, and moderate to severe aortic stenosis (JAKE of 0.94 cm2, peak gradient of 55 mmHg, and mean gradient of 33 mmHg) who presented with angina and underwent a stress test that was positive with noted large area of inferior and inferolateral wall reversible ischemia. The patient is being brought to the cardiac porcelain enamel laborer for further evaluation of their coronary anatomy with a left heart cath and possible percutaneous coronary intervention. Procedure Details: Informed consent was obtained. An Florentino's test was performed pre-procedure and the right radial artery was deemed adequate for arterial access. The right wrist was preped and draped in usual manner. The area was infiltrated with 2% lidocaine. Right radial artery was entered with a terumo sureflo needle and a 6 F sheath was inserted. A cocktail consisting of heparin, nitroglycerin, and verapamil was injected in the sheath. Selective left and right coronary angiogram was performed with a TIG catheter. Following the diagnostic portion of the procedure, a 6 Estonian XBC 3.5 guiding catheter was used to selectively cannulate the left main coronary artery. A [employer] Runthrough wire was advanced through the lesion and parked distal to the lesion. A 2.5 mm x 26 mm [place] Leroy drug eluting stent was placed across the lesion and deployed at 14 gissell. The lesion was reduced from 80% to 0%. Pre- intervention DAVID Flow was noted to be DAVID 3. Post intervention the DAVID flow was noted to be DAVID 3. The patient tolerated the procedure well. There were no complications. Heparin was used for anticoagulation during procedure. At the completion of the procedure, all the wires and catheters were removed. The radial sheath was removed and a trans-radial band was used to achieve hemostasis. The patient was given conscious sedation and monitored for a total of 30 minutes. Catheters Used: 1. 6 [place]ian Shahram/[place] 2. 6 Estonian XBC 3.5 guide All catheters were exchanged over the wire. CORONARY ANGIOGRAM: Left Main: Short vessel that is free of disease and bifurcates into a LAD and LCx. Left Anterior Descending: The left anterior descending coronary artery is a small-caliber vessel with a moderate (40-50%) proximal stenosis. Mild to moderate diffuse disease of the diagonal branch and the distal LAD is seen. Left Circumflex: The circumflex coronary artery is a medium-caliber vessel with a mild (30%) proximal stenosis. The first obtuse marginal branch of the circumflex coronary artery has a widely patent stent in the mid portion. There is noted mild disease distal to the stent. OM2 has noted severe (80%) disease in the mid to distal portion of the vessel. Right Coronary Artery: Dominant vessel with noted moderate (40-50%) diffuse proximal and mid disease. Distal RCA has mild disease. Left Ventricular Angiography: Not performed Hemodynamics: Please refer to porcelain enamel laborer flow sheet. Valve Disease: Moderate to severe aortic stenosis per echocardiogram in the office Percutaneous Coronary Intervention (PCI): A 6 [place]ian XBC 3.5 guiding catheter was used to selectively cannulate the left main coronary artery. A [employer] Runthrough wire was advanced through the lesion and parked distal to the lesion. A 2.5 mm x 26 mm Anthony Leroy drug eluting stent was placed across the lesion and deployed at 14 gissell. The lesion was reduced from 80% to 0%. Pre-intervention DAVID Flow was noted to be DAVID 3. Post intervention the DAVID flow was noted to be DAVID 3. The patient tolerated the procedure well. There were no complications. Heparin was used for anticoagulation during procedure. Complications: None Impression: 1. Right dominant system 2. Mooderate non-obstructive disease of the LAD and RCA. 3. Previous patent stent in OM1 branch of the LCx. 4. Severe (80%) disease of the mid to distal portion of the OM2 branch of the LCx. 5. Successful PCI of the OM2 branch of the LCx with a 2.5 mm x 26 mm Anthony Leroy [place]O. 6. Conscious sedation monitoring for a total of 30 minutes. Recommendations: -Routine post cath care and orders. -Transfer to the floor. -Dual antiplatelet therapy with Brilinta and Aspirin for at least 6 months to one year, then ASA indefinitely. -Continue with medical management. -Aggressive lifestyle and risk factor modifications were stressed to the patient. -Will need outpatient follow-up for his moderate to severe aortic stenosis. At the termination of procedure radial sheath removed and trans-radial band applied with good hemostasis Dominance: Right Moderate Sedation: Yes Complications: None Estimated Blood Loss: less than 5 cc Treatment Plan: PTCA / STENT PCI Patients Priority: Elective Pre-treated Lesion Length (in: 24 Pre DAVID Flow (0-3): 3 Post DAVID Flow (0-3): 3 Condition on leaving Chief Environmental Commitment Officer: Stable JOHN MEDINA MD October 27, 2024 16:56
[2024-10-27] MEDS: normal saline 1000ml 1,000 ML IV SCH (17:27)
[2024-10-27] MEDS ORDERED: clopidogrel 75mg tablet PO SCH (18:00)
[2024-10-27] MEDS ORDERED: hydrALAZINE 20mg/ml inj. IV PRN (18:35)
--- NOTE | 2024-10-27 19:52 | PROGRESS NOTE- Residence ---
Progress Note - Resident Providers to CC Resident Creating Document: ADRIAN RIVERA RES ~ Antibiotic Timeout Antibiotic Ordered?: No Subjective Patient was having the chest pain and EKG changes with T inversion in the morning which is different from the admission EKG. Vitals were stable except for the high blood pressure. Cardiology was consulted and they will do PCI today. Objective Vital Signs Date Time Temp Pulse Resp B/P (MAP) Pulse Ox O2 Delivery O2 Flow Rate FiO2 10/27/24 18:05 98.0 65 18 145/81 (102) 98 Room Air 10/27/24 02:56 0 Result Diagram: 10/27/249 10/27/24 025 Vitals were stable at the moment with BP 142/87 mm Hg, UT 62/minute. General: Well alert, well oriented, not confused, not agitated, not in acute distress, well cooperated during the physical. HEENT: Conjunctive are pink, sclerae clear, no icterus, pupil is equal in both sides, reactive to light, no ear discharge, no pharyngeal erythema or an edema, mouth and lips are moist. Neck: Supple, no JVD, no lymphadenopathy and thyromegaly. Lungs:Equal air entry on both lungs, no additional sounds Heart: S1-S2 regular sinus rhythm and, regular rate, no gallops, no rubs, no murmurs Abdomen: No visible peristalsis, Bowel sounds present on auscultation, soft, nontender, no guarding, no rigidity Extremities: No obvious deformities, no pitting edema bilaterally, capillary refill intact, able to wiggle toes both sides, peripheral pulsations are intact on both sides OPERATIONAL REVIEW SERGEANT: No focal neurological deficits, no motor and sensory weakness in all 4 extremities, could move all 4 extremities Musculoskeletal: No joint swelling, deformities, inflammations, and no scoliosis and back tenderness Skin: No active skin lesions and rashes Coagulation Studies Laboratory Tests Test 10/26/24 18:55 10/27/24 12:40 Prothrombin Time 10.5 SECONDS (9.0-12.0) INR International Normalized Ratio 1.0 INR Activated Partial Thromboplast Time 25 SECONDS (22-32) APTT (Heparin Protocol) 33 SECONDS (45-60) L Coagulation Comments Assessment Assessment An 79 years old male with a past medical history significant CAD s/p PCI stent in 2004 and 2008, hypertension, ttyvgnqf-ox-vjwufn aortic stenosis, hyperlipidemia, T2 DM, hypothyroidism, presented with atypical angina who underwent cardiac stress test which showed positive with large area of inferior and inferolateral wall reversible ischemia on 10/27/[address] Char Fox and Dr Allison. Plan Plan # Sever single Vessel CAD # Hx of S/p PCI stents in 2004 and 2008 -positive abnormal stress test with a large area of inferior and inferolateral wall reversible ischemia also involving LV apex -cardiac catheterization showed LAD 40-50% proximal stenosis, left circumflex 30% proximal stenosis, OM2 severe 80% stenosis -Onynx [place] drug eluting stent was placed at the left main coronary artery. -cardiology recommended for postprocedure with dual antiplatelet therapy aspirin and ticagrelor for at least six months to one year and ASA indefinitely lifelong, medical management, cardiovascular aggressive lifestyle and risk factor modifications, cardiology follow up for the jmsinznq-hq-kiplxh aortic stenosis. # HTN -control high blood pressure with IV hydralazine for BP> 180/80 mm Hg. -continue home medications for high blood pressure # hyperlipidemia -lipid profile in a good shape with LDL 51, continue maintaining LDL <55 -continue fenofibrate and atorvastatin 80 mg daily. # hypothyroidism on levothyroxine replacement -TSH WNL, continue levothyroxine 50 mcg in the emergency dispatch operator apart from the other medications and breakfast at least 30-60 minutes # nonspecific leukocytosis # hypochromic microcytic anemia -possible from the active/acute stress reaction -daily monitoring CBC, trending hemoglobin after procedure # TONY on CKD stage 3-mostly from renal tubular stasis # T2 dm with HGB A1c 6.5 on 10/26/2024 # protein calorie malnutrition -baseline creatinine 0.93, today creatinine 1.12, BUN 25, ratio> 20 -maintain optimal hydration, daily renal function tests check -targeted glucose ranges between 140-180 during hospitalization, currently around 90s and we will monitor blood glucose daily -encourage enriched protein diet CODE STATUS: Full code DVT prophylaxis: SCDs until fully ambulatory Analgesia/sedation: IV morphine as needed Lines/tubes: Peripheral IV GI prophylaxis: Protonix Nutrition: Heart healthy Prognosis: Guarded Disposition: Continue medical management and post PCI care as per Cardiology recommendation, double antiplatelet therapy, cardiovascular risk factor modification, PT eval and DC plan. Resident MD attestation: Patient was seen and examined with attending MD, Dr. Rossana RIVERA MD Internal Medicine Resident, PGY2 [facility] Date of Service: October 27, 2024 Billing Provider: EMELIA DECKER MD Common Visit Codes: [id number] INP/OBS CARE(HIGH) ADRIAN RIVERA, RES October 27, 2024 19:52 EMELIA DECKER MD October 27, 2024 21:20
[2024-10-27] MEDS: ticagrelor 90mg tablet PO SCH (20:51)
[2024-10-27] MEDS ORDERED: glucagon, human recombinant 1mg kit SUBCUT PRN (22:00)
[2024-10-27] MEDS ORDERED: dextrose 50%-water 50ml dispensing syringe IV PRN ×2 (22:00)
[2024-10-27] MEDS ORDERED: DEXTROSE 15 GM of carb/4 tabs (each vial/BOTTLE has 4 tablets) PO PRN ×2 (22:00)
[2024-10-27] MEDS ORDERED: ALPR0.252 PO (22:29)
[2024-10-27] MEDS: ALPRAZolam 0.25mg tablet PO ONE (22:36)
[2024-10-27] MEDS: INSULIN LISPRO 100 UNIT/ML INSULN.PEN MULTI-DOSE SQ SCH (23:09)
[2024-10-27] MEDS: insulin glargine (Lantus) pen - multi-dose SQ SCH (23:10)
[2024-10-28 02:00] VITALS: BP 163/66; PULSE 61; RESP 12; TEMP 97.6; O2SAT 99
[2024-10-28 02:22] VITALS: RESP 13; O2SAT 99
[2024-10-28 05:42] LABS: BASOPHILS % (AUTO) 0.3 % (0-1); EOSINOPHILS # (AUTO) 0.6 X10'3 (0-0.9); EOSINOPHILS % (AUTO) 5.1 % (0-6); HEMATOCRIT 37.4 % (42.0-52.0); HEMOGLOBIN 12.4 g/dl (14.0-17.9); LYMPHOCYTES % (AUTO) 7.6 % (21-51); MEAN CORPUSCULAR HGB CONC 33.2 g/dL (33.0-36.5); MEAN CORPUSCULAR VOLUME 90.5 FL (78-98); MEAN PLATELET VOLUME 7.6 FL (7.4-10.4); MONOCYTES # (AUTO) 1.7 X10'3 (0-0.9); MONOCYTES % (AUTO) 13.5 % (2-12); NEUTROPHILS # (AUTO) 9.2 X10'3 (1.8-7.7); NEUTROPHILS % (AUTO) 73.5 % (42-75); PLATELET COUNT 199 X10'3 (140-440); RED BLOOD COUNT 4.13 X10'6 (4.70-6.10); RED CELL DISTRIBUTION WIDTH 15.4 % (11.5-14.5); WHITE BLOOD COUNT 12.6 X10'3 (4.5-11.0)
[2024-10-28 06:00] VITALS: BP 105/82; PULSE 64; RESP 22; TEMP 97.6; O2SAT 96
[2024-10-28 06:16] LABS: ALANINE AMINOTRANSFERASE 19 U/L (12-78); ALBUMIN 2.7 G/DL (3.4-5.0); ALKALINE PHOSPHATASE 68 IU/L (46-116); ANION GAP 8 (8-16); ASPARTATE AMINO TRANSFERASE 15 U/L (10-37); BILIRUBIN,TOTAL 0.4 MG/DL (0.1-1.0); BLOOD UREA NITROGEN 19 MG/DL (7-18); BUN/CREATININE RATIO 17.6 (10.0-20.0); CALCIUM 8.8 MG/DL (8.5-10.1); CHLORIDE 105 MMOL/L (99-107); CREATININE 1.08 MG/DL (0.60-1.10); GLUCOSE 136 MG/DL (70-104); SODIUM 138 MMOL/L (135-145); TOTAL CARBON DIOXIDE 25.3 MMOL/L (24-32); TOTAL PROTEIN 5.4 G/DL (6.4-8.2); eCRCL 48 ML/MIN; eGFR 66 ML/MIN
[2024-10-28 06:19] LABS: POTASSIUM 4.6 MMOL/L (3.5-5.1)
[2024-10-28] MEDS ORDERED: INSULIN LISPRO 100 UNIT/ML INSULN.PEN MULTI-DOSE SQ SCH (07:00)
[2024-10-28] MEDS ORDERED: ticagrelor 90mg tablet PO SCH (08:00)
[2024-10-28] MEDS: isosorbide mononitrate 30mg tab.SR.24H PO SCH (09:12)
[2024-10-28] MEDS: pantoprazole 40mg Tablet.DR PO SCH (09:16)
[2024-10-28] MEDS: INSULIN LISPRO 100 UNIT/ML INSULN.PEN MULTI-DOSE SQ SCH (09:26)
[2024-10-28 10:06] VITALS: RESP 18; O2SAT 97
[2024-10-28 11:00] VITALS: BP 146/62; PULSE 65; RESP 22; TEMP 97.2; O2SAT 99
[2024-10-28] MEDS ORDERED: FURO-150 PO (11:30)
[2024-10-28] MEDS ORDERED: TICA90TA PO (11:30)
[2024-10-28] MEDS ORDERED: ASPI81TA53 PO (11:30)
--- NOTE | 2024-10-28 15:03 | DISCHARGE SUMMARY-Residence ---
Discharge Summary Providers to CC Resident Creating Document: ADRIAN RIVERA, RES ~ Discharge Summary Admission Diagnosis: Chest pain- unstable angina Hospital Course DATE OF ADMISSION: 10/26/2024 DATE OF DISCHARGE: 10/28/2024 Discharge Diagnosis\Comment: # Sever single Vessel CAD, s/p LAD stent on 10/27/[address] Fox and Dr Allison # Hx of S/p PCI stents in 2004 and 2008 # hypertension # hyperlipidemia # nonspecific leukocytosis # hypochromic microcytic anemia # TONY on CKD stage 3-mostly from renal tubular stasis - improved # T2 dm with HGB A1c 6.5 on 10/26/2024 # protein calorie malnutrition Operations\Procedures: Cardiac catheterization and PCI on 10/27/[address] Fox and Dr. Allison Consultants: Dr. Fox and Dr. Allison, cardiology Complications: None Condition on DC: Stable New Medications: Furosemide (Lasix) 20 Mg Tablet 20 MG PO DAILY for 30 Days, #30 TAB Aspirin (Children's Aspirin) 81 Mg Tab.chew 81 MG PO DAILY@0830 for 30 Days, #30 TAB.CHEW Ticagrelor (Brilinta) 90 Mg Tablet 90 MG PO BID for 30 Days, #60 TAB Continued Medications: Alprazolam (Xanax) 0.25 Mg Tablet 0.25 MG PO TID PRN for for anxiety/agitation Amlodipine Besylate (Amlodipine Besylate) 10 Mg Tablet 1 TAB PO DAILY Benazepril HCl (Benazepril HCl) 40 Mg Tablet 1 TAB PO DAILY Bisoprolol Fumarate/Hctz (Bisoprolol-Hctz 10-6.25 mg Tab) 10 Mg-6.25 Mg Tablet 1 TAB PO DAILY Cholecalciferol (Vitamin D3) (Vitamin D3) 1,000 Unit Tablet 1 TAB PO DAILY for 30 Days, #30 TAB Cyanocobalamin (Vitamin B-12) (Vitamin B12) 5,000 Mcg Tab.rapdis 1 TAB PO DAILY Fenofibrate (Fenofibrate) 160 Mg Tablet 1 TAB PO DAILY Finasteride (Finasteride) 5 Mg Tablet 1 TAB PO DAILY Levothyroxine Sodium (Levothyroxine Sodium) 50 Mcg Tablet 1 TAB PO DAILY@0700 Nitroglycerin SL* (Nitrostat SL*) 0.4 Mg Tablet 1 TAB SL Q5MIN PRN for Chest pain Q5min PRNx3-call MD, #25 TAB Pantoprazole Sodium (Pantoprazole Sodium) 40 Mg Tablet. 1 TAB PO BID Pramipexole Di-Hcl (Pramipexole Dihydrochloride) 0.25 Mg Tablet 3 TAB PO HS PRN for restless legs Rosuvastatin Calcium (Rosuvastatin Calcium) 20 Mg Tablet 1 TAB PO HS Tamsulosin Hcl* (Flomax*) 0.4 Mg Cap.sr.24h 2 CAPSULE PO DAILY for LARGE PROSTATE Tolterodine Tartrate (Tolterodine Tartrate ER) 4 Mg Cap.er.24h 1 CAP PO DAILY for bladder muscle dysfunction Tramadol Hcl (Tramadol Hcl) 50 Mg Tablet 1 TAB PO Q6H PRN for low back pain Discontinued Medications: Famotidine (Famotidine) 20 Mg Tablet 1 TAB PO DAILY Discharge Summary: An 79 years old male with a past medical history significant CAD s/p PCI stent in 2004 and 2008, hypertension, lblynkwc-fi-jlnyjb aortic stenosis, hyperlipidemia, T2 DM, hypothyroidism, presented with atypical angina who underw ent cardiac stress test which showed positive with large area of inferior and inferolateral wall reversible ischemia on 10/27/[address] Char Fox and Dr Allison. Hospital course: The patient was admitted to the hospital floor for his atypical angina in the setting of CAD and s/p PCI stent in 2004 and 2008 to rule out ACS and further management. His serial troponin level showed 14-14-15, no significant ST-T changes in the admission EKG findings but he has some T depressions at inferior and inferolateral leads in the repeated EKG on the next morning and patient regained the atypical central angina at the time. He was put on IV heparin on admission and Cardiology was requested for the consultation. He underwent nuclear medicine cardiac stress test on 10/28/2024 which showed positive abnormal stress test with a large area of inferior and inferolateral wall rev ersible ischemia also involving LV apex. He was taken for the PCI and cardiac catheterization by Dr Char Fox and Dr Allison showed LAD 40-50% proximal stenosis, left circumflex 30% proximal stenosis, OM2 severe 80% stenosis and Onynx [place] drug eluting stent was placed at the left main coronary artery. cardiology recommended for postprocedure with dual antiplatelet therapy aspirin and ticagrelor for at least six months to one year and ASA indefinitely lifelong, medical management, cardiovascular aggressive lifestyle and risk factor modifications, cardiology follow up for the cffoutsk-jr-jnryyx aortic stenosis. His high BP was controlled well with IV hydralazine 10 mg q.6 hours p.r.n. for BP> 180/80 mm Hg and continued home medications including antihypertensive medications appropriately after reconciliation was done. His lipid profile in a good shape with LDL 51, he continues maintaining LDL <55 and we continued fenofibrate and atorvastatin 80 mg daily. His TSH WNL, we continued levothyroxine 50 mcg in the cost engineer apart from the other medications and breakfast at least 30-60 minutes. His baseline creatinine 0.93, today creatinine 1.08, BUN 19 show significant improvement from the admission. Our targeted glucose are the ranges between 140-180 during hospitalization, currently around 90s and we monitored blood glucose daily. DVT prophylaxis was achieved with SCDs until fully ambulatory and pain control was achieved with IV morphine as needed. GI prophylaxis was done with the Protonix. His latest 2D echo from Dr Fox's office on 10/20/2024 showed LVEF 58%, normal systolic function, grade 1 diastolic dysfunction, LA severely dilated, bclbyhkv-hh-sqkscx aortic valve stenosis with peak aortic valve velocity 3.74 m/s trace TR, no pericardial effusion. Today, all of his labs were reviewed which are normalizing with hemoglobin 12.4, BUN 19, creatinine 1.08, RBS 139, electrolytes are within normal limits. His lipid profile showed triglycerides 60, total cholesterol 110, LDL 51, HDL of 51, TSH 3.51. All of the questions and concerns were addressed with the best knowledge of our team before he was discharged. All his vitals were stable at the moment with temp 97.2 F, KS 65/minute, RR 22/minute, BP 146/60 mm Hg, pulse oximetry 99% on room air. On examination, General: Well alert, well oriented, not confused, not agitated, not in acute distress, well cooperated during the physical. HEENT: Conjunctive are pink, sclerae clear, no icterus, pupil is equal in both sides, reactive to light, no ear discharge, no pharyngeal erythema or an edema, mouth and lips are moist. Neck: Supple, no JVD, no lymphadenopathy and thyromegaly. Lungs:Equal air entry on both lungs, no additional sounds Heart: S1-S2 regular sinus rhythm and, regular rate, no gallops, no rubs, 2/6 ejection systolic murmur widespread daily, radiated to the bilateral neck Abdomen: No visible peristalsis, Bowel sounds present on auscultation, soft, nontender, no guarding, no rigidity Extremities: No obvious deformities, no pitting edema bilaterally, capillary re fill intact, able to wiggle toes both sides, peripheral pulsations are intact on both sides. The right wrist punctured wound is secured with the well intact dressing and no active bleeding or extensive bruises around that. AREA COORDINATOR: No focal neurological deficits, no motor and sensory weakness in all 4 extremities, could move all 4 extremities Musculoskeletal: No joint swelling, deformities, inflammations, and no scoliosis and back tenderness Skin: No active skin lesions and rashes. Discharge instructions: - Immediate return to the ER for the Chest pain, Shortness of breath, hypotension, passing out and any emergecny situations etc -follow up with Cardiology Dr Fox in 1-2 weeks after discharge and be complaine with the double anti platelets therapry for at least 6-12months as per cardiology -follow up with PCP in 1-2 weeks for further management -Strict Cardiovascular risk factors modifications and active modify lifestyle -follow up with Cardiology for the Moderate aortic stenosis for further managment. Resident MD attestation: Patient was seen and examined with attending MD, Dr. Rossana RIVERA MD Internal Medicine Resident, PGY2 [facility] *Problems/Diagnosis: (1) CAD (coronary artery disease) Status: Chronic (2) Unstable angina Status: Resolved Total Time Spent on D/C: > 30 Minutes Date of Service: October 28, 2024 Billing Provider: EMELIA DECKER MD Common Visit Codes: 58555-ZWN/OBS DISCH DAY >30min ADRIAN RIVERA, MEGAN October 28, 2024 15:03 EMELIA DECKER MD October 28, 2024 20:51
[2024-10-28] MEDS ORDERED: insulin glargine (Lantus) pen - multi-dose SQ SCH (21:00)
== END 2024-10-28 15:54 | disposition home or self-care (01) | DRG 321 ==
LOC: ER 18:48 → ED HOLD 22:23 → PCU 3S 10-27 04:50
PROVIDERS: ADMIT Internal Medicine Pulmonary Disease; ATTEND Internal Medicine
PROC: 027034Z Dilation of Coronary Artery, One Artery with Drug-eluting Intraluminal Device, Percutaneous Approach (ICD-10-PCS; principal; 2024-10-27)
PROC: B2111ZZ Fluoroscopy of Multiple Coronary Arteries using Low Osmolar Contrast (ICD-10-PCS; 2024-10-27)
PROC: 4A02XM4 Measurement of Cardiac Total Activity, External Approach (ICD-10-PCS; 2024-10-27)
PROC: 3E033HZ Introduction of Radioactive Substance into Peripheral Vein, Percutaneous Approach (ICD-10-PCS; 2024-10-27)
DX: I25.110 Atherosclerotic heart disease of native coronary artery with unstable angina pectoris (principal); N17.0 Acute kidney failure with tubular necrosis; E46 Unspecified protein-calorie malnutrition; N18.30 Chronic kidney disease, stage 3 unspecified; D72.829 Elevated white blood cell count, unspecified; I12.9 Hypertensive chronic kidney disease with stage 1 through stage 4 chronic kidney disease, or unspecified chronic kidney disease; E11.22 Type 2 diabetes mellitus with diabetic chronic kidney disease; D50.8 Other iron deficiency anemias; E03.9 Hypothyroidism, unspecified; E78.5 Hyperlipidemia, unspecified; I25.2 Old myocardial infarction; Z88.5 Allergy status to narcotic agent; Z79.899 Other long term (current) drug therapy; Z90.49 Acquired absence of other specified parts of digestive tract; Z86.73 Personal history of transient ischemic attack (TIA), and cerebral infarction without residual deficits; Z68.31 Body mass index [BMI] 31.0-31.9, adult
CPT/HCPCS: 93454; C9600; 36415; 71045; 78452; 80053; 80061; 81003; 82948; 83036; 83735; 83880; 84443; 84484; 85025; 85610; 85730; 87081; 93005; 93017; 99152; 99153; A4615; A6258; A6449; A9500; C1751; C1769; C1874; C1894; G0378; J1644; J1815; J2003; J2250; J2270; J2785; J3010; J3490; J7030; Q9967

== ENCOUNTER 2024-11-05 17:29 | Inpatient (IN) | payer MEDICARE, BC ==
[~2024-11-05] VITALS: Ht 167.6 cm; Wt 87.3 kg
[~2024-11-05 17:29] MED LIST changes: +ALPR0.252 PO; +ASPI81TA53 PO; -CLON1PAT14 TOP; -CLOP75TA34 PO; -FAMO20TA8 PO; +FURO-150 PO; -ISOS30TA84 PO; -SITA25TA3 PO; +TICA90TA PO
--- NOTE | 2024-11-05 17:41 | ELECTROCARDIOGRAPH REPORT ---
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
--- NOTE | 2024-11-05 17:49 | Physician Documentation ---
History of Present Illness ~ Chief Complaint: Shortness of Breath Stated Complaint: POST OP COMP/ SOB Time Seen by MD: 18:29 OK to notify your PCP?: Yes Primary Medical Doctor: DR Indu CARR, DR XIONG Source: patient, family Mode of Arrival: Ambulatory Exam Limitations: no limitations HPI Lion is a 79-year-old male who presents to our emergency department with complaints of shortness of breath at rest and a productive cough since having a cardiac stent placed on . He states after his surgery they started him on some new medications and he believes 1 of them is a diuretic. He denies any fever, chills, nausea vomiting or diarrhea. Reviewed discharge summary 10/28/2024 single-vessel CAD status post LAD stent placed on aspirin Brilinta furosemide Medication Reconciliation Allergies: Coded Allergies: hydrocodone (Verified Allergy, Unknown, HALLUCINATIONS, 11/05/24) Scheduled Amlodipine Besylate (Amlodipine Besylate), 1 TAB PO DAILY, (Reported) Aspirin (Children's Aspirin), 81 MG PO DAILY@0830 Benazepril HCl (Benazepril HCl), 1 TAB PO DAILY, (Reported) Bisoprolol Fumarate/Hctz (Bisoprolol-Hctz 10-6.25 mg Tab), 1 TAB PO DAILY, (Reported) Cholecalciferol (Vitamin D3) (Vitamin D3), 1 TAB PO DAILY, (Reported) Cyanocobalamin (Vitamin B-12) (Vitamin B12), 1 TAB PO DAILY, (Reported) Fenofibrate (Fenofibrate), 1 TAB PO DAILY, (Reported) Finasteride (Finasteride), 1 TAB PO DAILY, (Reported) Levothyroxine Sodium (Levothyroxine Sodium), 1 TAB PO DAILY@0700, (Reported) Pantoprazole Sodium (Pantoprazole Sodium), 1 TAB PO BID, (Reported) Rosuvastatin Calcium (Rosuvastatin Calcium), 1 TAB PO HS, (Reported) Tamsulosin Hcl* (Flomax*), 2 CAPSULE PO DAILY, (Reported) Tolterodine Tartrate (Tolterodine Tartrate ER), 1 CAP PO DAILY, (Reported) Scheduled PRN Alprazolam (Xanax), 0.25 MG PO TID PRN for for anxiety/agitation, (Reported) Nitroglycerin SL* (Nitrostat SL*), 1 TAB SL Q5MIN PRN for Chest pain Q5min PRNx3-call MD, (Reported) Pramipexole Di-Hcl (Pramipexole Dihydrochloride), 3 TAB PO HS PRN for restless legs, (Reported) Tramadol Hcl (Tramadol Hcl), 1 TAB PO Q6H PRN for low back pain, (Reported) Discontinued Medications Furosemide (Lasix), 20 MG PO DAILY Discontinued Reason: patient no longer taking Ticagrelor (Brilinta), 90 MG PO BID Discontinued Reason: patient no longer taking Past Medical History Past Medical History: CVA/TIA/Stroke, Coronary Artery Disease, Hypertension, Myocardial Infarction, Kidney Stones, Diabetes, Thyroid (unspecified) Past Surgical History: angioplasty, cholecystectomy, orthopedic surgeries Alcohol Use: None Drug Use: none Lives with: Spouse Lives In: Home Occupation: retired Review of Systems All Other Systems at this time: Reviewed and Negative Constitutional: Denies: fever Respiratory: Reports: cough, orthopnea, shortness of breath Cardiovascular: Denies: chest pain Gastrointestinal: Denies: abdominal pain Physical Exam Vital Signs: Temperature: 97.7, Source: Oral, Heart Rate: 71, Respiratory Rate: 20, BP: 163/96, Pulse Oximetry: 96, Weight: 87.270 Physical Exam Nontoxic appearing Mild respiratory distress Productive cough scattered as expiratory wheezes Cardiac grade 3 systolic murmur No JVD Abdomen soft nontender Lower extremity no edema Skin pink warm dry Neuro awake alert oriented Progress Progress Note Reassess the patient he is having return of his dyspnea. He is feeling extremely anxious requesting his Ativan. I discussed the case with the hospitalist team and they graciously accept for admission Results/Orders Results/Orders Orders - ADDY KELLER MD * Rt Notification Q1H (11/05/24 20:51) Ct Chest (11/05/24 21:00) Page Hospitalist (11/05/24 23:04) Fill Out Med Reconciliation (11/05/24 23:04) Completed Orders - ADDY KELLER MD Albuterol 2.5mg/3ml Nebule (Proventil 2. (11/05/24 20:55) Ct Chest (11/05/24 21:00) Methylprednisolone Sod Succ (Solumedrol (11/05/24 23:00) Ipratropium/Albuterol Nebule (Ipratrop/A (11/05/24 23:00) Lorazepam Tablet (Ativan Tablet) (11/05/24 23:00) Medications Received in ER Medications (Trade) Dose Ordered Sig/Mine Route PRN Reason Start Time Stop Time Status Last Admin Dose Admin (Proventil 2.5 MG/3ML nebule) 5 mg ONCE ONCE CONTNEB 11/05/24 20:55 11/05/24 20:56 DC 11/05/24 21:24 5 MG (ipratrop/ albuterol 0.5-3(2.5) MG/3ml nebule) 6 ml ONCE ONCE NEB 11/05/24 23:00 11/05/24 23:08 DC 11/05/24 23:29 6 ML (Ativan tablet) 1 mg ONCE ONCE PO 11/05/24 23:00 11/05/24 23:08 DC 11/05/24 23:18 1 MG Vital Signs 11/05/24 11/05/24 11/05/24 11/05/24 17:35 18:47 18:55 20:41 Temp 97.7 Pulse 71 65 68 Resp 20 17 16 18 B/P (MAP) 163/96 142/49 (80) 137/71 (93) Pulse Ox 96 97 99 O2 Flow Rate 0 0 11/05/24 11/05/24 11/05/24 11/05/24 21:26 21:26 21:34 21:57 Pulse 65 60 78 Resp 16 19 16 B/P (MAP) 150/66 (94) Pulse Ox 97 97 100 O2 Flow Rate 8.0 11/05/24 11/05/24 23:00 23:29 Pulse 79 71 Resp 18 14 B/P (MAP) 117/61 (79) Pulse Ox 97 98 O2 Delivery Room Air* O2 Flow Rate 0 0 FiO2 21 Laboratory Tests Test 11/05/24 17:55 11/05/24 19:29 White Blood Count 11.2 H Red Blood Count 4.47 L Hemoglobin 13.2 L Hematocrit 40.1 L Mean Corpuscular Volume 89.7 Mean Corpuscular Hemoglobin 29.5 Mean Corpuscular Hemoglobin Concent 32.9 L Red Cell Distribution Width 15.3 H Platelet Count 258 Mean Platelet Volume 7.1 L Neutrophils (%) (Auto) 73.9 Lymphocytes (%) (Auto) 9.5 L Monocytes (%) (Auto) 11.0 Eosinophils (%) (Auto) 5.0 Basophils (%) (Auto) 0.6 Neutrophils # (Auto) 8.3 H Lymphocytes # (Auto) 1.1 Monocytes # (Auto) 1.2 H Eosinophils # (Auto) 0.6 Basophils # (Auto) 0.1 CBC Comment Sodium Level 142 Potassium Level 3.9 Chloride Level 104 Carbon Dioxide Level 31.5 Anion Gap 7 L Blood Urea Nitrogen 32 H Creatinine 1.73 H Estimated GFR/1.73 m2 38 BUN/Creatinine Ratio 18.5 Glucose Level 105 H Calcium Level 10.5 H Total Bilirubin 0.3 Aspartate Amino Transf (AST/SGOT) 13 Alanine Aminotransferase (ALT/SGPT) 15 Alkaline Phosphatase 79 Troponin I High Sensitivity 10 10 Pro-B-Type Natriuretic Peptide 465 H Total Protein 6.4 Albumin 3.4 Globulin 3.0 Albumin/Globulin Ratio 1.1 Chemistry Comments Troponin I High Sens Percent Delta 0 Troponin I Hi Sens Absolute Change 0 EKG/XRAY/CT/US/VASC/MRI EKG : Additional Comment EKG independently interpreted by myself time 5:32 p.m. indication shortness of breath normal sinus rhythm rate 70 normal axis first-degree heart block, left ventricular hypertrophy T-wave inversions leads III AVF V6 Chest X-Ray : Additional Comments I independently interpreted chest x-ray shows no pleural effusion mild cardiom egaly no pleural effusion no consolidation CT : Impression I independently interpreted his his CT I see no consolidation or pneumothorax. He does have some fibrotic changes Medical Decision Making Additional info obtained from: old records Additional Infomation Pulmonary edema, pulmonary embolism, pericardial effusion, CHF, aortic stenosis Departure Disposition: 09 ADMITTED INPATIENT Admitted to Inpatient Unit: to hospitalist Impression: Primary Impression: Aortic stenosis Qualified Codes: I35.0 - Nonrheumatic aortic (valve) stenosis Additional Impression: Pulmonary fibrosis Referrals: NO PRIMARY CARE PROVIDER (PCP) Signature Scribe Signature: na Attestation: RUBENS Schwarz November 05, 2024 17:49 ADDY KELLER MD November 05, 2024 20:37
[2024-11-05 18:13] LABS: BASOPHILS # (AUTO) 0.1 X10'3 (0-0.2); BASOPHILS % (AUTO) 0.6 % (0-1); EOSINOPHILS # (AUTO) 0.6 X10'3 (0-0.9); HEMATOCRIT 40.1 % (42.0-52.0); HEMOGLOBIN 13.2 g/dl (14.0-17.9); LYMPHOCYTES # (AUTO) 1.1 X10'3 (1.1-4.8); LYMPHOCYTES % (AUTO) 9.5 % (21-51); MEAN CORPUSCULAR HEMOGLOBIN 29.5 PG (27.0-31.0); MEAN CORPUSCULAR HGB CONC 32.9 g/dL (33.0-36.5); MEAN CORPUSCULAR VOLUME 89.7 FL (78-98); MEAN PLATELET VOLUME 7.1 FL (7.4-10.4); MONOCYTES # (AUTO) 1.2 X10'3 (0-0.9); NEUTROPHILS # (AUTO) 8.3 X10'3 (1.8-7.7); NEUTROPHILS % (AUTO) 73.9 % (42-75); PLATELET COUNT 258 X10'3 (140-440); RED BLOOD COUNT 4.47 X10'6 (4.70-6.10); RED CELL DISTRIBUTION WIDTH 15.3 % (11.5-14.5); WHITE BLOOD COUNT 11.2 X10'3 (4.5-11.0)
--- NOTE | 2024-11-05 18:27 | RADIOLOGY REPORT ---
CHEST RADIOGRAPH Indication: CP Technique: Single frontal view of the chest was obtained COMPARISON: DI CHEST,SINGLE VIEW on DOS: 10/26/24, DI CHEST,SINGLE VIEW on DOS: 03/06/23, CHEST,SINGLE EW on DOS: 10/01/19, CHEST,SINGLE VIEW on DOS: 09/29/18, CHEST,SINGLE VIEW on DOS: 03/21/18 FINDINGS: Lines and Tubes: None Lungs: Left basilar linear airspace opacities. Pleura: No effusion. No pneumothorax. Cardiomediastinal contours: Upper normal heart size. Bones: Osseus degenerative changes. IMPRESSION: Left basilar subsegmental atelectasis and/or consolidation.
[2024-11-05 18:37] LABS: ALANINE AMINOTRANSFERASE 15 U/L (12-78); ALBUMIN 3.4 G/DL (3.4-5.0); ALBUMIN/GLOBULIN RATIO 1.1 (1.1-1.5); ALKALINE PHOSPHATASE 79 IU/L (46-116); ANION GAP 7 (8-16); ASPARTATE AMINO TRANSFERASE 13 U/L (10-37); BILIRUBIN,TOTAL 0.3 MG/DL (0.1-1.0); BLOOD UREA NITROGEN 32 MG/DL (7-18); BUN/CREATININE RATIO 18.5 (10.0-20.0); CALCIUM 10.5 MG/DL (8.5-10.1); CHLORIDE 104 MMOL/L (99-107); CREATININE 1.73 MG/DL (0.60-1.10); GLUCOSE 105 MG/DL (70-104); POTASSIUM 3.9 MMOL/L (3.5-5.1); SODIUM 142 MMOL/L (135-145); TOTAL CARBON DIOXIDE 31.5 MMOL/L (24-32); TOTAL PROTEIN 6.4 G/DL (6.4-8.2); eCRCL 30 ML/MIN; eGFR 38 ML/MIN
[2024-11-05 18:39] LABS: PRO BRAIN NATRIURETIC PEPTIDE 465 PG/ML (0-450)
[2024-11-05] MEDS: albuterol 2.5 MG/3 ML nebule CONTNEB ONE (21:22)
[2024-11-05 21:26] VITALS: PULSE 65; RESP 16; O2SAT 97
[2024-11-05 21:57] VITALS: PULSE 78; RESP 16; O2SAT 100
--- NOTE | 2024-11-05 22:48 | RADIOLOGY REPORT ---
Clinical History sob Comparison None Technique: All CT scans at this medical facility are performed using dose modulation techniques as appropriate t o a performed exam including the following: Automated exposure control was utilized; adjustment of th e mA and/or kV according to patient size; and use of iterative reconstruction technique. All CT studies are reported to the Dose Index Registry of the [employer]. Without Contrast Radiation Dose: CTDI (mGy): 18.12; DLP (mGy-cm): 714.69 MANE GIRON, [id number] Findings: rubber calender helper: none Mediastinum: No significant meidastinal or hilar lymphadenopathy.Atherosclerotic calcification of tho racic aorta, aortic arch major branches, aortic valve and coronary arteries. The major mediastinal v ascular structures are unremarkable. The heart and pericardium are unremarkable. The esophagus is unr emarkable. Thoracic wall: unremarkable Lungs: Minimum bibasilar dependent atelectasis. 3.7 mm right upper lobe calcified pulmonary granulom a. Minimal bilateral subpleural increased reticulations and parenchymal thickening consistent with a ge-related fibrotic changes. Bilateral subcentimeter pulmonary nodules which could represent pulmona ry granulomata. No suspicious pulmonary nodules, masses, consolidation or edema.The major airways ar e unremarkable.No pleural effusion. No pneumothorax. Upper abdomen: 1.8 x 2.2 cm pancreatic tail cyst.. Bilateral renal cysts. Bilateral nonobstructive calcified renal calculi, the largest measures 6.2 mm. Musculoskeletal: No acute osseous abnormality. Degenerative changes of the imaged skeleton. Impression: Coronary atherosclerotic disease. No suspicious pulmonary nodules, masses, consolidation or edema. Age-related interstitial fibrotic changes, correlation with pulmonary function test is recommended to assess for restrictive pattern This report was electronically signed by Ubaldo Purdy MD on 11/05/2024 10:45:35 PM.
[2024-11-05] MEDS: methylPREDNISolone sod succ 125mg/2ml vial IV ONE (23:00)
[2024-11-05] MEDS: LORazepam 1 MG tablet PO ONE (23:18)
[2024-11-05 23:29] VITALS: PULSE 71; RESP 14; O2SAT 98
[2024-11-05] MEDS: ipratropium/albuterol 3ml nebule NEB ONE (23:29)
[2024-11-05] MEDS ORDERED: magnesium Cl slow-release 64mg tablet PO PRN (23:50)
[2024-11-05] MEDS ORDERED: potassium Cl 40MEQ/1/2NS 520ml 520 ML IV PRN (23:50)
[2024-11-05] MEDS ORDERED: potassium Cl 20 mEq SR tablet PO PRN ×2 (23:50)
[2024-11-05] MEDS ORDERED: magnesium sulf-water 4G/100mL 100 ML IV PRN (23:50)
[2024-11-05] MEDS ORDERED: magnesium sulf-water 2g/50mL 50 ML IV PRN (23:50)
[2024-11-05] MEDS ORDERED: acetaminophen 325mg tablet PO PRN (23:50)
[2024-11-05 23:54] VITALS: PULSE 76; RESP 15; O2SAT 98
[2024-11-06] VITALS (11 sets, daily range): BP systolic 108–158; BP diastolic 59–70; PULSE 65–97; RESP 16–24; TEMP 97.3–98.3; O2SAT 92–100
--- NOTE | 2024-11-06 00:05 | HISTORY AND PHYSICAL-Residence ---
History & Physical Providers to CC Resident Creating Document: STEPHAN MCLEAN, RES ~ History of Present Illness Primary Medical Doctor: DR Indu FOX, DR XIONG Reason for Admit\Complaint: Shortness of breadth History of Present Illness This is an 79-year-old male with previous medical history of CAD s/p 3 stents, the most recent on 10/27/[address] Fox, aortic stenosis, type 2 diabetes mellitus, hypertension, hyperlipidemia, hypothyroidism came to the ER with a chief complaint of shortness of breadth and cough which started on the day after the stent was placed. The cough is mostly nonproductive, sometimes productive with greenish sputum. Denies any nasal congestion, fever. Denies any contact with people with similar complaints. Shortness of breadth also started around the same time, increases on lying down. Also reports waking up in the middle of the night feeling short of breadth and panicky. Denies any chest pain, palpitations, leg swellings. Reports occasional dizziness. 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25 Mg Tablet 1 Tab PO DAILY Tramadol Hcl (Tramadol HCl) 50 Mg Tablet 1 Tab PO Q6H PRN Benazepril HCl 40 Mg Tablet 1 Tab PO DAILY Pramipexole Dihydrochloride (Pramipexole Di-Hcl) 0.25 Mg Tablet 3 Tab PO HS PRN Flomax* (Tamsulosin HCl) 0.4 Mg Cap.sr.24h 2 Capsule PO DAILY Tolterodine Tartrate ER (Tolterodine Tartrate) 4 Mg Cap.er.24h 1 Cap PO DAILY Finasteride 5 Mg Tablet 1 Tab PO DAILY Pantoprazole Sodium 40 Mg Tablet.dr 1 Tab PO BID Rosuvastatin Calcium 20 Mg Tablet 1 Tab PO HS Nitrostat SL* (Nitroglycerin) 0.4 Mg Tablet 1 Tab SL Q5MIN PRN Vitamin D3 (Cholecalciferol (Vitamin D3)) 1,000 Unit Tablet 1 Tab PO DAILY 30 Days Vitamin B12 (Cyanocobalamin (Vitamin B-12)) 5,000 Mcg Tab.rapdis 1 Tab PO DAILY Past Medical History Past Medical History CAD s/p three stents, one in 2004, one in 2008, the recent one in [address]/27/[address] Aortic stenosis Hypertension Type 2 diabetes mellitus Hyperlipidemia Hypothyroidism BPH restless leg syndrome Chronic back pain Past Surgical History Surgical History Comment Three stents one in 2004, one in 2008, the recent one in 10/27/[address] Past Social History Social History Comment Denies any history of smoking, smoked for about one year while he was in high school Denies any history of alcohol use Denies any history of drug use Lives with his at his home. Smoking: Non-Smoker Alcohol Use: None Drug Use: None Lives with: Spouse Lives In: Home Occupation: retired ROS Constitutional: Denies: no symptoms reported, see HPI, chills, diaphoresis, fever, malaise, weakness, other Eyes: Denies: no symptoms reported, see HPI, pain, discharge, blurred vision, double vision, itching, photophobia, redness, tearing, other ENT: Denies: no symptoms reported, see HPI, ear pain, ear bleeding, ear discharge, hearing loss, ear ringing, nose pain, nose bleeding, nose congestion, nose discharge, throat pain, throat swelling, voice change, mouth pain, mouth bleeding, mouth swelling, other Respiratory: Reports: cough, shortness of breath Cardiovascular: Denies: no symptoms reported, see HPI, chest pain, left arm pain, diaphoresis, lightheadedness, syncope, edema, palpitations, irregular heart rate, other Gastrointestinal: Denies: no symptoms reported, see HPI, abdomen distended, abdominal pain, nausea, vomiting, diarrhea, constipated, melena, hematemesis, hematochezia, rectal bleeding, rectal pain, dysphagia, poor appetite, poor fluid intake, other Genitourinary: Denies: no symptoms reported, see HPI, burning, discharge, dysuria, frequency, flank pain, hematuria, incontinence, pain, decreased urine output, urgency, other Neurological: Denies: no symptoms reported, see HPI, speech problem, headache, dizziness, fainting, tingling, left sided numbness, right sided numbness, left sided weakness, right sided weakness, problems walking, unable to move lower ext, unable to move upper ext, petit mal seizures, tonic-clonic seizures, cognitive dysfunction, other Musculoskeletal: Denies: no symptoms reported, see HPI, pain, swelling, back pain, gout, joint pain, joint swelling, muscle pain, muscle swelling, muscle stiffness, neck pain, other Exam Vitals: Vital Signs Date Time Temp Pulse Resp B/P (MAP) Pulse Ox O2 Delivery O2 Flow Rate FiO2 11/05/24 23:54 76 15 98 Room Air* 0 21 11/05/24 23:00 117/61 (79) 11/05/24 17:35 97.7 General: General: Awake and Alert, no acute distress. HEENT: Conjunctiva pink, Sclera clear, Mucus Membranes moist. Resp: Bilateral air entry present, mild wheezing in bilateral lungs. Heart: Regular Rate and rhythm, normal S1 and S2, ejection systolic murmur, more prominent in the aortic area, rub or gallop. Abdomen: No tenderness, no guarding, no rigidity, bowel sounds heard Extremities: No cyanosis,clubbing or edema. 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 No motor or sensory deficits. No cranial nerve deficits Skin: Warm and Dry. No purpura noted Diagnostic Data Last Recorded Lab Results: 11/05/24 1755 11/05/24 1755 Advance Care Planning Advanced Care plannin - 30 Minutes (I spent about 17 minutes in discussing various resuscitative measures, the patient chose to be full code.) Additional Plan Assessment This is an 79-year-old male with previous medical history of CAD s/p 3 stents, the most recent on 10/27/[address] Fox, aortic stenosis, type 2 diabetes mellitus, hypertension, hyperlipidemia, hypothyroidism came to the ER with a chief complaint of shortness of breadth and cough which started on the day after the stent was placed. Patient is being admitted for possible CHF exacerbation. Plan Possible CHF with preserved ejection fraction. Patient is currently on room air. ProBNP is 465 Echo in 2022 showed an ejection fraction of 65%, JAKE 1.78 Repeat echo ordered to rule out any possible pericardial effusion. Lasix not given because of TONY. Possible cardiac asthma Patient had wheezing at the time of admission. Chest x-ray normal Chest CT showed some interstitial fibrotic changes. No consolidations, no edema. 125 mg of methylprednisolone was given in the ER. DuoNebs q.4 p.r.n. Patient does not have any history of smoking or history of asthma. Aortic stenosis The shortness of breadth could be secondary to the aortic stenosis. Echo in 2022 showed JAKE 1.78. Repeat echo ordered. History of CAD s/p stent EKG showed sinus rhythm with first-degree block. Continued patient's home medication aspirin and Brilinta TONY on CKD likely secondary to renal tubular stasis Creatinine is 1.73 , BUN 32 Creatinine 10/28/2024 is 1.08 Urine electrolytes ordered. Lasix held Follow up with repeat labs. Type 2 diabetes mellitus A1c on 11/19 was 6.5 Started on Lantus 20 units and low-dose protocol. History of hyperlipidemia Continued patient's home medication fenofibrate and rosuvastatin. History of hypothyroidism Continued medication levothyroxine. History of restless leg syndrome Continued patient's home medication pramipexole History of BPH Continued patient's home medication tamsulosin and finasteride. Code status: Full DVT prophylaxis: Aspirin and Brilinta GI prophylaxis; pantoprazole Diet: Heart healthy diet Line/tubes: Peripheral IV line Stephan Mclean M.D PGY1 I saw and evaluated the pt with the resident DR MCLEAN Agree with plan as documented Pt appeared comfortable could lie flat at the time we saw him Cardiology consulted Date of Service: November 05, 2024 Billing Provider: LEVON DUNBAR MD, PRAVAHIKA, MEGAN November 06, 2024 00:05 LEVON DUNBAR MD November 06, 2024 04:09
[2024-11-06] MEDS ORDERED: traMADol 50MG tablet PO PRN (00:20)
[2024-11-06] MEDS ORDERED: glucagon, human recombinant 1mg kit SUBCUT PRN (00:30)
[2024-11-06] MEDS ORDERED: dextrose 50%-water 50ml dispensing syringe IV PRN ×2 (00:30)
[2024-11-06] MEDS ORDERED: DEXTROSE 15 GM of carb/4 tabs (each vial/BOTTLE has 4 tablets) PO PRN ×2 (00:30)
[2024-11-06] MEDS: methylPREDNISolone sod succ/PF 40mg inj. IV ONE (00:35)
[2024-11-06 02:22] LABS: BASOPHILS % (AUTO) 0.2 % (0-1); EOSINOPHILS # (AUTO) 0.4 X10'3 (0-0.9); EOSINOPHILS % (AUTO) 2.8 % (0-6); HEMOGLOBIN 12.4 g/dl (14.0-17.9); LYMPHOCYTES # (AUTO) 0.8 X10'3 (1.1-4.8); LYMPHOCYTES % (AUTO) 5.9 % (21-51); MEAN CORPUSCULAR HEMOGLOBIN 29.3 PG (27.0-31.0); MEAN CORPUSCULAR HGB CONC 32.6 g/dL (33.0-36.5); MEAN PLATELET VOLUME 7.1 FL (7.4-10.4); MONOCYTES % (AUTO) 6.7 % (2-12); NEUTROPHILS % (AUTO) 84.4 % (42-75); PLATELET COUNT 233 X10'3 (140-440); RED BLOOD COUNT 4.22 X10'6 (4.70-6.10); WHITE BLOOD COUNT 14.2 X10'3 (4.5-11.0)
[2024-11-06 02:29] LABS: ALBUMIN 3.2 G/DL (3.4-5.0); ANION GAP 5 (8-16); BLOOD UREA NITROGEN 32 MG/DL (7-18); BUN/CREATININE RATIO 19.6 (10.0-20.0); CHLORIDE 107 MMOL/L (99-107); CREATININE 1.63 MG/DL (0.60-1.10); GLUCOSE 114 MG/DL (70-104); POTASSIUM 3.5 MMOL/L (3.5-5.1); SODIUM 142 MMOL/L (135-145); TOTAL CARBON DIOXIDE 29.7 MMOL/L (24-32); eCRCL 32 ML/MIN; eGFR 41 ML/MIN
[2024-11-06] MEDS ORDERED: non-formulary drug (Levothyroxine Sodium 1 TAB) PO SCH (07:00)
[2024-11-06] MEDS ORDERED: CYANOCOBALAMIN PO SCH (08:00)
[2024-11-06] MEDS ORDERED: TOLTERODINE TARTRATE PO SCH (08:00)
[2024-11-06] MEDS ORDERED: FENOFIBRATE PO SCH (08:00)
[2024-11-06] MEDS: K and/or MAG REPLACEMENT MC SCH (08:00)
[2024-11-06] MEDS: oxybutynin 5mg tablet PO SCH (09:03)
[2024-11-06] MEDS: tamsulosin 0.4mg capsule PO SCH (09:04)
[2024-11-06] MEDS: pantoprazole 40mg Tablet.DR PO SCH (09:04)
[2024-11-06] MEDS: aspirin 81mg, enteric-coated 1 TAB TABLET.DR PO SCH (09:04)
[2024-11-06] MEDS: finasteride 5mg tablet PO SCH (09:04)
[2024-11-06] MEDS: cyanocobalamin 500mcg tablet PO SCH (09:04)
[2024-11-06] MEDS: levoTHYROXINE 25mcg tablet PO SCH (09:06)
[2024-11-06] MEDS: docusate sod 100mg capsule PO SCH (09:06)
[2024-11-06] MEDS: ticagrelor 90mg tablet PO SCH (09:06)
[2024-11-06] MEDS: atorvastatin 20mg tablet PO SCH (09:06)
[2024-11-06] MEDS: INSULIN LISPRO 100 UNIT/ML INSULN.PEN MULTI-DOSE SQ SCH (10:40)
[2024-11-06] MEDS: fenofibrate 48mg tablet PO SCH (11:35)
[2024-11-06] MEDS: magnesium hydroxide 30ml (MOM) UD suspension PO PRN (11:44)
[2024-11-06] MEDS: ondansetron/PF 4mg/2ml inj IV PRN (11:45)
[2024-11-06] MEDS: ipratropium/albuterol 3ml nebule NEB PRN (14:34)
[2024-11-06] MEDS: nitroGLYCERIN 0.4mg SUBLingual tab SL PRN (14:53)
--- NOTE | 2024-11-06 15:01 | ELECTROCARDIOGRAPH REPORT ---
[facility] Test Date: 2024-11-06 Test Time: 14:57:36 Pat Name: MANE GIRON Department: [facility] 3S Patient ID: [facility]-[id number] Room: [place] [id number] B Gender: M Heart Surgeon: : 1945 Requested By: ZAINA DANIEL Order Number: [id number] Reading MD: Dr. Emanuel Fox Measurements Intervals [place] Rate: 103 P: 54 NM: 221 QRS: 47 QRSD: 94 T: -19 QT: 343 QTc: 449 Interpretive Statements Sinus tachycardia Prolonged NM interval Probable inferior infarct, age indeterminate Electronically Signed On 11-06-2024 18:53:[address] Emanuel Fox Please click the below link to view image of tracing.
[2024-11-06] MEDS: morphine 10mg/0.5ml (conc. morphine) oral syringe PO PRN (15:24)
--- NOTE | 2024-11-06 16:32 | CONSULTATION REPORT ---
History of Present Illness Providers to CC CC: DEYANIRA CARR MD ~ Reason for Admit\Admit Dx: Shortness of breadth Refering MD: DR TYRESE HENNING History of Present Illness This is an 79-year-old male who presented through the emergency department secondary to increased shortness for breath. He was just seen in the office on Wednesday and overall felt well. He reported shortness for breath was at baseline. Now increased shortness for breath with lying flat. Complains of chest pain this afternoon in his left chest. EKG was performed and showed no acute ST changes. High sensitivity troponins negative x3. Allergies: Coded Allergies: hydrocodone (Verified Allergy, Unknown, HALLUCINATIONS, 11/05/24) Home Medications Home Medications Active Children's Aspirin (Aspirin) 81 Mg Tab.chew 81 Mg PO DAILY@0830 30 Days Reported Xanax (Alprazolam) 0.25 Mg Tablet 0.25 Mg PO TID PRN Fenofibrate 160 Mg Tablet 1 Tab PO DAILY Levothyroxine Sodium 50 Mcg Tablet 1 Tab PO DAILY@0700 Amlodipine Besylate 10 Mg Tablet 1 Tab PO DAILY Bisoprolol-Hctz 10-6.25 mg Tab (Bisoprolol Fumarate/Hctz) 10 Mg-6.25 Mg Tablet 1 Tab PO DAILY Tramadol Hcl (Tramadol HCl) 50 Mg Tablet 1 Tab PO Q6H PRN Benazepril HCl 40 Mg Tablet 1 Tab PO DAILY Pramipexole Dihydrochloride (Pramipexole Di-Hcl) 0.25 Mg Tablet 3 Tab PO HS PRN Flomax* (Tamsulosin HCl) 0.4 Mg Cap.sr.24h 2 Capsule PO DAILY Tolterodine Tartrate ER (Tolterodine Tartrate) 4 Mg Cap.er.24h 1 Cap PO DAILY Finasteride 5 Mg Tablet 1 Tab PO DAILY Pantoprazole Sodium 40 Mg Tablet.dr 1 Tab PO BID Rosuvastatin Calcium 20 Mg Tablet 1 Tab PO HS Nitrostat SL* (Nitroglycerin) 0.4 Mg Tablet 1 Tab SL Q5MIN PRN Vitamin D3 (Cholecalciferol (Vitamin D3)) 1,000 Unit Tablet 1 Tab PO DAILY 30 Days Vitamin B12 (Cyanocobalamin (Vitamin B-12)) 5,000 Mcg Tab.rapdis 1 Tab PO DAILY Past Medical History Medical History Comment Coronary artery disease with recent PCI of the OM2 branch October 27, 2024 Moderate aortic stenosis Hypertension Type 2 diabetes Hyperlipidemia Hypothyroidism BPH Restless legs Chronic back pain Past Surgical History Surgical History Comment Coronary stents Past Social History Social History Comment No history of smoking. No alcohol use. No recreational drugs. 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 Lives with . Physical Exam Last Vital Signs Recorded: RN Vital Signs have been reviewed: Yes, Temperature: 97.3, Source: Temporal, Heart Rate: 97, Respiratory Rate: 24, BP: 158/65, Pulse Oximetry: 92, Weight: 87.270 Physical Exam General: Awake, alert, oriented. No apparent distress Neck: Supple. Normal range of motion. No JVD Respiratory: Lungs are clear to auscultation bilaterally. No respiratory distress. Chest: Normal shape and size. No accessory muscle use. Cardiovascular: Regular rate and rhythm. S1-S2. No murmur, gallop, rub. Gastrointestinal: Abdomen is soft. Nontender to palpation. Bowel sounds present. Extremities: No lower extremity edema, cyanosis or clubbing. Neurologic: Alert and oriented x4. Nonfocal Psychiatric: Normal mood and affect. Skin: Normal color. Warm and dry. Review of Systems ROS Patient complains of chest pain as noted in HPI. Complains of shortness for breath and orthopnea. No dizziness, lightheadedness or syncope. Was asked, but otherwise denies review of systems. Results EKG EKG Sinus tachycardia rate of 103. First-degree AV block with MO interval 221 milliseconds. Diagram Lab Result Diagram: 11/06/24 0202 11/06/24 0202 Assessment/Plan Additional Plan This is an 79-year-old male who presented with increased shortness for breath in the setting of recent stent to the OM after failing a stress test. The following is his problem list: Shortness for breath Suspect underlying etiology is aortic stenosis though Brilinta causing the shortness for breath can not be excluded. --stop Brilinta --start Plavix 75 mg daily after loading with 600 mg x 1 Coronary artery disease History of stent 2024 in 2008 to the OM1 x2. Recent PCI of the OM2. Other nonobstructive coronary artery disease is [id number]-me-hzmiumop. --continue Plavix 75 mg daily with 600 mg x 1 loading dose as above --stop Brilinta --aspirin 81 mg daily for life --continue beta-dana --continue high-intensity statin. Moderate aortic stenosis Had an echocardiogram in the office about three weeks ago that revealed moderate aortic stenosis. A repeat echocardiogram has been ordered by the hospitalist. Awaiting results. Acute kidney injury, baseline creatinine about 1.1 now up to 1.63. Monitoring daily labs. Avoid nephrotoxic drugs. Other chronic medical conditions: Diabetes type 2 Hyperlipidemia Hypothyroidism Restless leg syndrome BPH Supervising MD Supervising Physician: HYACINTH Urrutia NP November 06, 2024 16:32
--- NOTE | 2024-11-06 17:07 | CARDIOLOGY REPORT ---
APPROVED REPORT EXAM: Limited 2D, Doppler, and color-flow Echocardiogram. Patient Location: [address] Blood Pressure: 153/65 mmHg Heart Rate: 102 bpm Rhythm: SINUS TACHYCARDIA Indications PERICARDIAL EFFUSION CHEST PAIN (12/05 DURING TIME OF ECHO) CAD, S/P STENTS X3 AORTIC STENOSIS Public Relations Supervisor: Agnes Fox MD Previous echo: 10/20/24 CVC (EF 58%, mod to sev JAKE 0.94 cmsq, pk / mn grad 56 / 32 mmHg, pkV 3.74 m/s, trace TR) 2D Dimensions IVSd 1.6 (0.7-1.1cm) LVDd 3.3 cm PWd 1.6 (0.7-1.1cm) LVOT Diameter 2.21 (1.8-2.4cm) LVEF(%) 85.0 (>50%) M-Mode Dimensions Left Atrium(MM) 4.06 (2.5-4.0cm) Aortic Root 3.11 (2.2-3.7cm) Aortic Cusp Exc 1.24 (1.5-2.0cm) Aortic Valve AoV Peak Norris. 370.0 cm/s AoV VTI 63.0 cm AO Peak GR. 54.8 mmHg AO Mean GR. 34 mmHg LVOT VTI 20.45 cm LVOT Peak Norris. 122.2 cm/s JAKE(VTI)/BSA 1.24 cm2/m2 JAKE (VTI) 1.24 cm2 LEFT VENTRICLE Small LV size and hyperdynamic function. Moderate concentric hypertrophy. Resting LV gradient of 12 m mHg at rest, increasing to 23 mmHg with Valsalva maneuver. Gradient may be due to hyperdynamic LV fun ction. LVEF is 80-85%. ATRIA Left atrium is mildly dilated. AORTIC VALVE Trileaflet AV appears moderately sclerotic and calcified with moderate stenosis. JAKE is measured at 1 .24 cmsq. Peak / mean gradients of 55 / 34 mmHG. Peak velocity is measured at 3.70 m/sec. No insuffic iency. MITRAL VALVE Mild MV annular calcification without stenosis. Trace regurgitation. PULMONIC VALVE Normal PV without stenosis, physiologic insufficiency. GREAT VESSELS Aortic root is normal in size. PERICARDIUM Normal pericardium. No effusion. Other Information Study Quality: Adequate Conclusion Small LV size and hyperdynamic function. Moderate concentric hypertrophy. Resting LV gradient of 12 mmHg at rest, increasing to 23 mmHg with Valsalva maneuver. Gradient may be due to hyperdynamic LV fu nction. LVEF is 80-85%. Left atrium is mildly dilated. Trileaflet AV appears moderately sclerotic and calcified with moderate stenosis. JAKE is measured at 1 .24 cmsq. Peak / mean gradients of 55 / 34 mmHG. Peak velocity is measured at 3.70 m/sec. No insuff iciency. Mild MV annular calcification without stenosis. Trace regurgitation. Normal pericardium. No effusion.
[2024-11-06] MEDS: clopidogrel 300mg tablet PO ONE (17:09)
--- NOTE | 2024-11-06 19:38 | PROGRESS NOTE ---
Daily Progress Note Providers to CC ~ Antibiotic Timeout Antibiotic Ordered?: No Subjective The patient is more short of breath than at baseline has LVEF is now 80-85% which points to dehydration if anything be in fluid overloaded the patient has moderate aortic stenosis on echocardiogram currently in his followed by Cardiology- Cardiology BENNIE Jama and started the patient on a loading dose of Plavix 600 mg followed by 75 mg p.o. of Plavix daily Objective Vital Signs Date Time Temp Pulse Resp B/P (MAP) Pulse Ox O2 Delivery O2 Flow Rate FiO2 11/06/24 15:49 97 24 158/65 (96) 92 Room Air 11/06/24 14:42 0.0 11/06/24 14:38 21 11/06/24 11:00 97.3 Result Diagram: 11/06/2420111/06/24201 Gen. No acute distress alert and oriented �4 Lungs clear to ascultation bilaterally, no wheezes rales or rhonchi appreciated Heart normal sinus rhythm no murmurs rubs or clicks noted Abdomen soft nontender bowel sounds are normoactive Lower extremities no clubbing cyanosis, nor edema appreciated bilaterally Problem\Assessment\Plan Problems/Diagnosis: (1) CHF (congestive heart failure) # significant shortness of breath possibly secondary to acute exacerbation chronic HFpEF versus symptomatic aortic stenosis Evaluated by by Dr. John Allison cardiology team which recommended the patient's symptoms were likely secondary to his aortic stenosis And BENNIE Jama and started the patient on Plavix 600 mg x 1 and then 75 mg daily LVEF currently is 80-85% Echocardiogram currently demonstrates moderate aortic stenosis # coronary artery disease status post stent to the OM2 proximally one-week ago The patient will remain on 81 mg aspirin and beta-dana and high intensity statin Janis was discontinued and the patient was started on Plavix as per above # hai-vuikitt-kqsdpzntv diabetes mellitus and a hyper and hypoglycemic protocol # hypothyroidism continue levothyroxine # BPH- continue tamsulosin and finasteride # chronic kidney disease- daily CMPs are ordered to monitor for TONY Date of Service: November 06, 2024 Billing Provider: ZAINA DANIEL DO Common Visit Codes: [id number] INP/OBS CARE(HIGH) ZAINA DANIEL DO November 06, 2024 19:38
[2024-11-06] MEDS ORDERED: non-formulary drug (Rosuvastatin Calcium 1 TAB) PO SCH (21:00)
[2024-11-06] MEDS: insulin glargine (Lantus) pen - multi-dose SQ SCH (21:13)
[2024-11-06] MEDS: ALPRAZolam 0.25mg tablet PO PRN (22:48)
[2024-11-07] VITALS (11 sets, daily range): BP systolic 125–149; BP diastolic 53–69; PULSE 62–100; RESP 12–26; TEMP 97.5–98.6; O2SAT 93–99
[2024-11-07] MEDS: benzonatate 100mg capsule PO PRN ×2 (01:12→14:17)
[2024-11-07] MEDS: lactulose 20gm/30ml cup PO ONE (02:05)
[2024-11-07 06:32] LABS: BASOPHILS # (AUTO) 0.1 X10'3 (0-0.2); BASOPHILS % (AUTO) 0.4 % (0-1); EOSINOPHILS # (AUTO) 0.3 X10'3 (0-0.9); EOSINOPHILS % (AUTO) 1.9 % (0-6); HEMATOCRIT 38.4 % (42.0-52.0); HEMOGLOBIN 12.9 g/dl (14.0-17.9); LYMPHOCYTES # (AUTO) 1.7 X10'3 (1.1-4.8); LYMPHOCYTES % (AUTO) 12.6 % (21-51); MEAN CORPUSCULAR HEMOGLOBIN 30.1 PG (27.0-31.0); MEAN CORPUSCULAR HGB CONC 33.5 g/dL (33.0-36.5); MEAN CORPUSCULAR VOLUME 89.9 FL (78-98); MONOCYTES # (AUTO) 1.7 X10'3 (0-0.9); MONOCYTES % (AUTO) 12.6 % (2-12); NEUTROPHILS # (AUTO) 9.8 X10'3 (1.8-7.7); NEUTROPHILS % (AUTO) 72.5 % (42-75); PLATELET COUNT 256 X10'3 (140-440); RED BLOOD COUNT 4.28 X10'6 (4.70-6.10); RED CELL DISTRIBUTION WIDTH 15.3 % (11.5-14.5); WHITE BLOOD COUNT 13.5 X10'3 (4.5-11.0)
[2024-11-07 07:11] LABS: ALBUMIN 3.2 G/DL (3.4-5.0); ANION GAP 7 (8-16); BLOOD UREA NITROGEN 37 MG/DL (7-18); BUN/CREATININE RATIO 22.7 (10.0-20.0); CALCIUM 9.6 MG/DL (8.5-10.1); CHLORIDE 107 MMOL/L (99-107); CREATININE 1.63 MG/DL (0.60-1.10); GLUCOSE 138 MG/DL (70-104); MAGNESIUM 2.3 MG/DL (1.5-2.4); POTASSIUM 4.3 MMOL/L (3.5-5.1); SODIUM 144 MMOL/L (135-145); TOTAL CARBON DIOXIDE 29.9 MMOL/L (24-32); eCRCL 32 ML/MIN; eGFR 41 ML/MIN
[2024-11-07] MEDS: clopidogrel 75mg tablet PO SCH (10:09)
[2024-11-07] MEDS: fenofibrate 48mg tablet PO SCH (10:10)
--- NOTE | 2024-11-07 12:04 | PROGRESS NOTE ---
Progress Note Cardiology Providers to CC ~ Subjective Subjective Patient reports improvement in shortness for breath. He did two laps with physical therapy and was cleared. On the 2nd lacks he was complaining of some shortness for breath but reports significant improvement. His Brilinta was stopped yesterday and he was transitioned to Plavix, after loading dose. He has significant cough. When he gets to coughing he gets increased shortness for breath and starts getting anxious. Has had anxiety for about the past eight years but worsening recently. Takes Xanax as needed. Yesterday 100 episode of chest pain after receiving an albuterol treatment. No current chest pain or pressure. Has not had an episode since yesterday. Objective Result Diagram: 11/07/2461411/07/24614 Objective General: Awake, alert, oriented. No apparent distress Neck: Supple. Normal range of motion. Respiratory: Lungs are clear to auscultation bilaterally. No respiratory distress. Chest: Normal shape and size. No accessory muscle use. Cardiovascular: Regular rate and rhythm. S1-S2. ++murmur. no gallop, rub. Extremities: No lower extremity edema, cyanosis or clubbing. Neurologic: Alert and oriented x4. Nonfocal Psychiatric: Normal mood and affect. Skin: Normal color. Warm and dry. Problem\Assessment\Plan Additional Plan This is an 79-year-old male who presented with increased shortness for breath in the setting of recent stent to the OM after failing a stress test. The following is his problem list: Shortness for breath Suspect underlying etiology is aortic stenosis though Brilinta causing the shortness for breath can not be excluded. --stop Brilinta --start Plavix 75 mg daily after loading with 600 mg x 1 11/07/24: Repeat echocardiogram shows an LVEF of 80 85% with hyperdynamic function and moderate hypertrophy with IVSd 1.6 cm 7 pWd 1.6 cm. LVDd 3.3 cm. This is different from previous echocardiogram. Awaiting review by Dr. Allison. Coronary artery disease History of stent 2024 in 2008 to the 1 x2. Recent PCI of the OM2. Other nonobstructive coronary artery disease is vasc-bo-ckbkdasj. --continue Plavix 75 mg daily with 600 mg x 1 loading dose as above --stop Brilinta --aspirin 81 mg daily for life --continue beta-dana --continue high-intensity statin. Moderate aortic stenosis Had an echocardiogram in the office about three weeks ago that revealed moderate aortic stenosis. A repeat echocardiogram has been ordered by the hospitalist. 11/07/24: Repeat echocardiogram demonstrates continued moderate aortic stenosis with aortic valve area 1.24 cm2, mean gradient 34 mm of mercury and peak velocity 3.70 m/sec. Acute kidney injury, baseline creatinine about 1.1 now up to 1.63. Monitoring daily labs. Avoid nephrotoxic drugs. Other chronic medical conditions: Diabetes type 2 Hyperlipidemia Hypothyroidism Restless leg syndrome BPH 1236: Reviewed echocardiogram with Dr. Allison. LV is hyperdynamic. We will give gentle hydration. NT proBNP within normal limits on admit and elevated creatinine. Monitor closely for signs of fluid overload. Supervising Physician: HYACINTH Urrutia NP November 07, 2024 12:04
[2024-11-07] MEDS ORDERED: piperacillin/tazo 4.5gm/100ml 100 ML IV SCH (12:25)
[2024-11-07] MEDS: mag hydrox/Alum hydrox/simeth 30ml oral suspension PO PRN (14:20)
[2024-11-07] MEDS: normal saline 1000ml 1,000 ML IV SCH (15:50)
[2024-11-07] MEDS: piperacillin/tazo 3.375gm/50ml 50 ML IV SCH (15:53)
[2024-11-07] MEDS ORDERED: ipratropium/albuterol 3ml nebule NEB PRN (16:35)
[2024-11-07] MEDS: pramipexole 0.25mg tablet PO PRN (20:30)
[2024-11-07] MEDS: budesonide 0.5mg/2ml UD nebule IH SCH (20:50)
--- NOTE | 2024-11-07 21:09 | PROGRESS NOTE ---
Daily Progress Note Providers to CC ~ Antibiotic Timeout Antibiotic Ordered?: Yes Subjective The patient has a significant cough today and then light of the fact that the patient does have a leukocytosis which is downtrending I started the patient on IV Zosyn the patient also was started on budesonide nebs and PRN DuoNeb as well as a PEP with oscillitation and an incentive spirometer Objective Vital Signs Date Time Temp Pulse Resp B/P (MAP) Pulse Ox O2 Delivery O2 Flow Rate FiO2 11/07/24 20:55 100 18 Room Air 0.0 11/07/24 20:51 98 21 11/07/24 18:00 97.5 131/69 (89) Result Diagram: 11/07/24 0615 11/07/24 0615 Gen. No acute distress alert and oriented �4, moderate to significant cough Lungs clear to ascultation bilaterally, no wheezes rales or rhonchi appreciated Heart normal sinus rhythm no murmurs rubs or clicks noted Abdomen soft nontender bowel sounds are normoactive Lower extremities no clubbing cyanosis, nor edema appreciated bilaterally Problem\Assessment\Plan Problems/Diagnosis: (1) CHF (congestive heart failure) # acute productive cough with leukocytosis and left basilar segmental consolidation - likely secondary to pneumonia IV Zosyn Sputum culture # significant shortness of breath - with acute cough likely secondary to pneumonia however possibly secondary to acute exacerbation chronic HFpEF versus symptomatic aortic stenosis is also a possible etiology Evaluated by by Dr. John Allison cardiology team which recommended the patient's symptoms were likely secondary to his aortic stenosis And DC Brilinta and started the patient on Plavix 600 mg x 1 and then 75 mg daily LVEF currently is 80-85% Echocardiogram currently demonstrates moderate aortic stenosis Prn DuoNeb Budesonide nebs scheduled Incentive spirometer PEP with oscillitation # coronary artery disease status post stent to the OM2 proximally one-week ago The patient will remain on 81 mg aspirin and beta-dana and high intensity statin Janis was discontinued and the patient was started on Plavix as per above # ira-hijpvry-uplelyvzj diabetes mellitus and a hyper and hypoglycemic protocol # hypothyroidism continue levothyroxine # BPH- continue tamsulosin and finasteride # chronic kidney disease- daily CMPs are ordered to monitor for TONY # DVT prophylaxis- SQ heparin # disposition DC home once medically cleared- evaluated by Physical therapy on 11/07/2024 and cleared for discharge Date of Service: November 07, 2024 Billing Provider: ZAINA DANIEL DO Common Visit Codes: [id number] INP/OBS CARE(HIGH) ZAINA DANIEL DO November 07, 2024 21:09
--- NOTE | 2024-11-07 22:14 | ELECTROCARDIOGRAPH REPORT ---
[facility] Test Date: 2024-11-07 Test Time: 22:10:46 Pat Name: MANE GIRON Department: [facility] 3S Patient ID: [id number] Room: [place] [address] [address] Gender: M Spring Tester: : 1945 Requested By: WOJCIECH MCLEAN Order Number: [id number] Reading MD: Dr. Emanuel Fox Measurements Intervals [place] Rate: 73 P: 24 ND: 241 QRS: 40 QRSD: 91 T: 43 QT: 382 QTc: 421 Interpretive Statements Sinus rhythm Prolonged ND interval Abnormal R-wave progression, early transition Electronically Signed On 11-08-2024 8:51:[address] Emanuel Fox Please click the below link to view image of tracing.
[2024-11-08 02:00] VITALS: BP 131/52; PULSE 67; RESP 12; TEMP 97.6; O2SAT 96
[2024-11-08 06:42] LABS: BASOPHILS # (AUTO) 0.1 X10'3 (0-0.2); BASOPHILS % (AUTO) 0.5 % (0-1); EOSINOPHILS # (AUTO) 0.7 X10'3 (0-0.9); HEMATOCRIT 35.6 % (42.0-52.0); HEMOGLOBIN 11.9 g/dl (14.0-17.9); LYMPHOCYTES # (AUTO) 1.4 X10'3 (1.1-4.8); MEAN CORPUSCULAR HEMOGLOBIN 30.1 PG (27.0-31.0); MEAN CORPUSCULAR HGB CONC 33.3 g/dL (33.0-36.5); MEAN CORPUSCULAR VOLUME 90.3 FL (78-98); MEAN PLATELET VOLUME 7.1 FL (7.4-10.4); MONOCYTES # (AUTO) 1.4 X10'3 (0-0.9); MONOCYTES % (AUTO) 12.3 % (2-12); NEUTROPHILS # (AUTO) 7.6 X10'3 (1.8-7.7); NEUTROPHILS % (AUTO) 68.2 % (42-75); PLATELET COUNT 223 X10'3 (140-440); RED BLOOD COUNT 3.94 X10'6 (4.70-6.10); RED CELL DISTRIBUTION WIDTH 14.9 % (11.5-14.5); WHITE BLOOD COUNT 11.1 X10'3 (4.5-11.0)
[2024-11-08 07:06] LABS: ALBUMIN 2.7 G/DL (3.4-5.0); ANION GAP 6 (8-16); BLOOD UREA NITROGEN 31 MG/DL (7-18); BUN/CREATININE RATIO 22.5 (10.0-20.0); CALCIUM 8.8 MG/DL (8.5-10.1); CHLORIDE 108 MMOL/L (99-107); CREATININE 1.38 MG/DL (0.60-1.10); GLUCOSE 106 MG/DL (70-104); MAGNESIUM 2.3 MG/DL (1.5-2.4); POTASSIUM 4.1 MMOL/L (3.5-5.1); SODIUM 143 MMOL/L (135-145); eCRCL 38 ML/MIN; eGFR 49 ML/MIN
[2024-11-08 08:00] VITALS: RESP 16; O2SAT 98
[2024-11-08] MEDS: heparin, porcine 5000 units/ml vial SQ SCH (08:00)
[2024-11-08 08:09] VITALS: PULSE 66; RESP 16; O2SAT 99
[2024-11-08 08:15] VITALS: PULSE 68; RESP 18
--- NOTE | 2024-11-08 12:00 | RADIOLOGY REPORT ---
CHEST RADIOGRAPH Indication: suspicious of pneumonia and started IV ABx Technique: Single frontal view of the chest was obtained Comparison: DI CHEST,SINGLE VIEW on DOS: 11/05/24, DI CHEST,SINGLE VIEW on DOS: 10/26/24, DI CHEST,SINGL E VIEW on DOS: 03/06/23, CHEST,SINGLE VIEW on DOS: 10/01/19, CHEST,SINGLE VIEW on DOS: 09/29/18 FINDINGS: The cardiac silhouette is enlarged. The lungs demonstrate perihilar airspace opacities. The pulmonary vasculature is prominent. There is no pleural effusion.. There is no pneumothorax. Aortic atheroscle rotic disease. IMPRESSION: 1. Cardiomegaly with pulmonary vascular congestion and bilateral perihilar airspace opacities.
[2024-11-08 15:00] VITALS: BP 152/88; PULSE 69; RESP 16; TEMP 97.6; O2SAT 97
[2024-11-08] MEDS ORDERED: BISO10TA16 PO (15:04)
[2024-11-08] MEDS ORDERED: BENZ-111 PO (15:04)
--- NOTE | 2024-11-08 15:43 | DISCHARGE SUMMARY-Residence ---
Discharge Summary Providers to CC Resident Creating Document: ADRIAN RIVERA RES ~ Discharge Summary Admission Diagnosis: SOB CHF EXACERBATION Hospital Course DATE OF ADMISSION: 11/05/2024 DATE OF DISCHARGE: 11/08/2024 Discharge Diagnosis\Comment: # acute on chronic hypoxic respiratory failure from acute exacerbation of chronic CHFpEF 80-85% # Moderate Aortic stenosis induced dyspnea could not be ruled out # Ruled out left basilar segmental consolidation pneumonia # CAD, s/p x 3 stents and OM2 proximally one week ago # TONY ON CKD 3 from the renal tubular stasis # T2DM # hypothyroidism on levothyroxine # BPH # HLD # RLS Operations\Procedures: None Consultants: Dr. Allison and Cardiology team Complications: None Condition on DC: Stable New Medications: Bisoprolol Fumarate (Bisoprolol Fumarate) 10 Mg Tablet 1 TAB PO DAILY for 30 Days, #30 TAB 0 Refills Benzonatate (Benzonatate) 100 Mg Capsule 200 MG PO Q8H PRN for cough for 5 Days, #15 CAP Continued Medications: Alprazolam (Xanax) 0.25 Mg Tablet 0.25 MG PO TID PRN for for anxiety/agitation Amlodipine Besylate (Amlodipine Besylate) 10 Mg Tablet 1 TAB PO DAILY Aspirin (Children's Aspirin) 81 Mg Tab.chew 81 MG PO DAILY@0830 for 30 Days, #30 TAB.CHEW Benazepril HCl (Benazepril HCl) 40 Mg Tablet 1 TAB PO DAILY Cholecalciferol (Vitamin D3) (Vitamin D3) 1,000 Unit Tablet 1 TAB PO DAILY for 30 Days, #30 TAB Cyanocobalamin (Vitamin B-12) (Vitamin B12) 5,000 Mcg Tab.rapdis 1 TAB PO DAILY Fenofibrate (Fenofibrate) 160 Mg Tablet 1 TAB PO DAILY Finasteride (Finasteride) 5 Mg Tablet 1 TAB PO DAILY Levothyroxine Sodium (Levothyroxine Sodium) 50 Mcg Tablet 1 TAB PO DAILY@0700 Nitroglycerin SL* (Nitrostat SL*) 0.4 Mg Tablet 1 TAB SL Q5MIN PRN for Chest pain Q5min PRNx3-call MD, #25 TAB Pantoprazole Sodium (Pantoprazole Sodium) 40 Mg Tablet.dr 1 TAB PO BID Pramipexole Di-Hcl (Pramipexole Dihydrochloride) 0.25 Mg Tablet 3 TAB PO HS PRN for restless legs Rosuvastatin Calcium (Rosuvastatin Calcium) 20 Mg Tablet 1 TAB PO HS Tamsulosin Hcl* (Flomax*) 0.4 Mg Cap.sr.24h 2 CAPSULE PO DAILY for LARGE PROSTATE Tolterodine Tartrate (Tolterodine Tartrate ER) 4 Mg Cap.er.24h 1 CAP PO DAILY for bladder muscle dysfunction Tramadol Hcl (Tramadol Hcl) 50 Mg Tablet 1 TAB PO Q6H PRN for low back pain Discontinued Medications: Bisoprolol Fumarate/Hctz (Bisoprolol-Hctz 10-6.25 mg Tab) 10 Mg-6.25 Mg Tablet 1 TAB PO DAILY Discharge Summary: An 79 years old male PMH of chronic CHFpEF 80-85%, Moderate Aortic stenosis, CAD, s/p x 3 stents and OM2 proximally one week ago, CKD 3, T2DM, hypothyroidism on levothyroxine, BPH, HLD, RLS presented with acute shortness of breaths with productive coughing. Hospital course: Patient was admitted to the hospital floor for further management for his acute on chronic CHFpEF, in the setting of moderate aortic stenosis and recent one week ago OM2 proximally stent placement for CAD. His proBNP was elevated with 465 and clinical features and retaining fluid from CHF exacerbation and his acute shortness of breath by moderate aortic stenosis although on Brilinta could not be excluded during hospitalization, the cardiology Dr Allison team's consultation was requested. Repeat echocardiogram on 11/07/24 showed shows an LVEF of 80 85% with hyperdynamic function and moderate hypertrophy with IVSd 1.6 cm 7 pWd 1.6 cm. LVDd 3.3 cm. This is different from previous echocardiogram and moderate aortic stenosis with aortic valve area 1.24 cm2, mean gradient 34 mm of mercury and peak velocity 3.70 m/sec. We continued Plavix 75 mg daily with 600 mg x 1 loading dose and stopped Brilinta. Cardiology recommended for life long aspirin 81 mg daily, beta dana and high-intensity statin medications. Prn DuoNeb, Budesonide nebs scheduled, Incentive spirometer and PEP with oscillitation were ordered. All of his home medication were reconciled appropriately and I continue accordingly. Today, all of the labs were reviewed including trending down WBC, normal ESR seven, normal procalcitonin, normal lactic acid, and vitals were stable at the moment with temp 97.6� F, W[place] 67/minute, RR 20/minute, BP 130/52 mm Hg, pulse oximetry 96% on room air. All of his concerns and questions were addressed with the best of knowledge of our team before he was discharged. On examination, General: Well alert, well oriented, not confused, not agitated, not in acute distress, well cooperated during the physical. HEENT: Conjunctive are pink, sclerae clear, no icterus, pupil is equal in both sides, reactive to light, no ear discharge, no pharyngeal erythema or an edema, mouth and lips are moist. Neck: Supple, no JVD, no lymphadenopathy and thyromegaly. Lungs:Equal air entry on both lungs, no additional sounds Heart: S1-S2 regular sinus rhythm and, regular rate, no gallops, no rubs, no murmurs Abdomen: No visible peristalsis, Bowel sounds present on auscultation, soft, nontender, no guarding, no rigidity Extremities: No obvious deformities, no pitting edema bilaterally, capillary refill intact, able to wiggle toes both sides, peripheral pulsations are intact on both sides MAMMOGRAPHY TECH: No focal neurological deficits, no motor and sensory weakness in all 4 extremities, could move all 4 extremities Musculoskeletal: No joint swelling, deformities, inflammations, and no scoliosis and back tenderness Skin: No active skin lesions and rashes Discharge instructions: Patient needs follow-up with primary care physician and program management specialist after hospital discharge and make the appointment with them. Further management of aortic stenosis per sales order specialist. Activity as tolerated. Read the side effects of all your medications. Resident MD attestation: Patient was seen, examined and discussed with attending MD, Dr. Geovany RIVERA MD Internal Medicine Resident, PGY2 [facility] *Problems/Diagnosis: (1) CHF (congestive heart failure) Status: Resolved Total Time Spent on D/C: > 30 Minutes Date of Service: November 08, 2024 Billing Provider: EILEEN BILLS MD Common Visit Codes: 89350-FAN/OBS DISCH DAY >30min ADRIAN RIVERA RES November 08, 2024 15:31 EILEEN BILLS MD November 08, 2024 18:47
== END 2024-11-08 18:00 | disposition home or self-care (01) | DRG 291 ==
LOC: ER 17:30 → ED HOLD 23:29 → PCU 3S 11-06 02:51
PROVIDERS: ADMIT Internal Medicine; ATTEND Family Medicine
DX: I13.0 Hypertensive heart and chronic kidney disease with heart failure and stage 1 through stage 4 chronic kidney disease, or unspecified chronic kidney disease (principal); I50.33 Acute on chronic diastolic (congestive) heart failure; J96.21 Acute and chronic respiratory failure with hypoxia; N17.0 Acute kidney failure with tubular necrosis; Z20.822 Contact with and (suspected) exposure to COVID-19; I35.0 Nonrheumatic aortic (valve) stenosis; I25.10 Atherosclerotic heart disease of native coronary artery without angina pectoris; N18.30 Chronic kidney disease, stage 3 unspecified; G25.81 Restless legs syndrome; E03.9 Hypothyroidism, unspecified; E78.5 Hyperlipidemia, unspecified; E11.22 Type 2 diabetes mellitus with diabetic chronic kidney disease; J84.10 Pulmonary fibrosis, unspecified; F41.9 Anxiety disorder, unspecified; N40.0 Benign prostatic hyperplasia without lower urinary tract symptoms; Z88.5 Allergy status to narcotic agent; Z79.82 Long term (current) use of aspirin; Z79.899 Other long term (current) drug therapy; Z90.49 Acquired absence of other specified parts of digestive tract; Z95.5 Presence of coronary angioplasty implant and graft
CPT/HCPCS: 36415; 70450; 71045; 80048; 80053; 82570; 82948; 83605; 83735; 83880; 83935; 84145; 84300; 84484; 85025; 85651; 87081; 87207; 87811; 93005; 93308; 94640; 94664; 94760; 97116; 97161; 99285; A4615; A7015; G0378; J1644; J1815; J2405; J2543; J2919; J7030

== ENCOUNTER 2024-11-23 10:13 | Day surgery (SDC) | payer MEDICARE, BC ==
[2024-11-23] VITALS (10 sets, daily range): BP systolic 153–179; BP diastolic 68–85; PULSE 75–95; RESP 15–26; TEMP 98.1; O2SAT 92–96
[~2024-11-23] VITALS: Ht 167.6 cm; Wt 88.0 kg
[~2024-11-23 10:13] MED LIST changes: +BENZ-111 PO; -BISO-2 PO; +BISO10TA16 PO; -FURO-150 PO; -TICA90TA PO
[2024-11-23] MEDS ORDERED: diphenhydrAMINE 25mg capsule PO PRN (10:45)
--- NOTE | 2024-11-23 10:48 | ELECTROCARDIOGRAPH REPORT ---
[facility] Test Date: 2024-11-23 Test Time: 10:44:37 Pat Name: MANE GIRON Department: [facility] Patient ID: [facility]-[id number] Room: Gender: M Eyelet Maker: LEROY : 1945 Requested By: BOB CARR Order Number: [id number] Reading MD: Dr. JYOTI Mittal Measurements Intervals [place] Rate: 82 P: 67 NM: 239 QRS: 43 QRSD: 84 T: 20 QT: 358 QTc: 418 Interpretive Statements Sinus rhythm Prolonged NM interval Abnormal R-wave progression, early transition Electronically Signed On 11-23-2024 18:23:[address] JYOTI Mittal Please click the below link to view image of tracing.
[2024-11-23] MEDS ORDERED: FENO160T34 PO (10:59)
[2024-11-23] MEDS ORDERED: ASPI-1265 PO (10:59)
[2024-11-23] MEDS ORDERED: TIRZ5PEN SQ (10:59)
[2024-11-23] MEDS ORDERED: FURO20TA4 PO (10:59)
[2024-11-23] MEDS ORDERED: ISOS60TA71 PO (10:59)
[2024-11-23] MEDS ORDERED: POTA-206 PO (10:59)
[2024-11-23] MEDS ORDERED: INSU200I4 SQ (10:59)
[2024-11-23] MEDS ORDERED: FAMO40TA86 PO (10:59)
[2024-11-23] MEDS ORDERED: CLOP-32 PO (10:59)
[2024-11-23 11:22] LABS: BASOPHILS % (AUTO) 0.4 % (0-1); EOSINOPHILS # (AUTO) 0.8 X10'3 (0-0.9); HEMATOCRIT 36.2 % (42.0-52.0); LYMPHOCYTES # (AUTO) 0.9 X10'3 (1.1-4.8); LYMPHOCYTES % (AUTO) 9.5 % (21-51); MEAN CORPUSCULAR HEMOGLOBIN 29.9 PG (27.0-31.0); MEAN CORPUSCULAR HGB CONC 33.2 g/dL (33.0-36.5); MEAN PLATELET VOLUME 7.1 FL (7.4-10.4); MONOCYTES % (AUTO) 10.6 % (2-12); NEUTROPHILS # (AUTO) 6.9 X10'3 (1.8-7.7); NEUTROPHILS % (AUTO) 71.5 % (42-75); PLATELET COUNT 179 X10'3 (140-440); RED BLOOD COUNT 4.02 X10'6 (4.70-6.10); RED CELL DISTRIBUTION WIDTH 15.6 % (11.5-14.5); WHITE BLOOD COUNT 9.7 X10'3 (4.5-11.0)
[2024-11-23 11:28] LABS: APTT 24 SECONDS (22-32); PROTHROMBIN TIME 10.7 SECONDS (9.0-12.0)
[2024-11-23 11:29] LABS: ALBUMIN 3.2 G/DL (3.4-5.0); ANION GAP 6 (8-16); BLOOD UREA NITROGEN 30 MG/DL (7-18); BUN/CREATININE RATIO 25.4 (10.0-20.0); CALCIUM 9.1 MG/DL (8.5-10.1); CHLORIDE 110 MMOL/L (99-107); CHOL/HDL RATIO 2.7 (0.00-4.99); CHOLESTEROL 129 MG/DL (0-200); CREATININE 1.18 MG/DL (0.60-1.10); GLUCOSE 133 MG/DL (70-104); HDL CHOLESTEROL 48 MG/DL (35-60); LDL CHOLESTEROL 63 MG/DL (50-100); POTASSIUM 4.3 MMOL/L (3.5-5.1); SODIUM 143 MMOL/L (135-145); TOTAL CARBON DIOXIDE 26.9 MMOL/L (24-32); TRIGLYCERIDES 85 MG/DL (20-135); eCRCL 44 ML/MIN; eGFR 59 ML/MIN
[2024-11-23] MEDS ORDERED: ONDA-243 PO (11:39)
[2024-11-23] MEDS ORDERED: VOLTAREN GEL (11:39)
[2024-11-23] MEDS ORDERED: DOCU-391 PO (11:39)
[2024-11-23] MEDS: LORazepam 0.5 MG tablet PO PRN (12:13)
[2024-11-23] MEDS: normal saline 1,000 ML IV SCH (12:13)
[2024-11-23] MEDS ORDERED: verapamil 2.5 mg/ml inj IV ONE (12:14)
[2024-11-23] MEDS ORDERED: LIDOcaine 1% (10mg/ml) 2ml vial ONE (12:14)
[2024-11-23] MEDS ORDERED: fentaNYL/PF 50MCG/1 ML 2ML syringe ONE (12:14)
[2024-11-23] MEDS ORDERED: midazolam 1 mg/ML 2ml injection ONE (12:14)
[2024-11-23] MEDS ORDERED: heparin 1,000unit/ml 10ml vial 10 ML ONE (12:15)
[2024-11-23] MEDS ORDERED: nitroGLYCERIN 500mcg/5mL D5W 0 ML IV ONE (12:15)
[2024-11-23] MEDS ORDERED: iohexol 350MG/ML 100ml bottle IV ONE (12:15)
[2024-11-23] MEDS ORDERED: LIDOcaine 1% 30ml preserv. free vial ONE (12:34)
[2024-11-23] MEDS ORDERED: hydrALAZINE 20mg/ml inj. ONE (13:05)
[2024-11-23] MEDS ORDERED: morphine 2 MG/ML inj. syringe ONE (13:15)
--- NOTE | 2024-11-23 13:17 | CARDIAC CATH REPORT ---
Cardiac Cath Report Providers to CC CC: DEYANIRA CARR MD Procedure Comments: 1. Selective Coronary Angiography 2. Right Femoral artery access 3. Right femoral artery angiography 4. Closure of femoral artery with Perclose x 1 Brief History/Indications: 79yo man with HTN, HLD, TIA, , CAD(s/p PCI LCx/OM) with recurrent episodes of CP since recent PCI referred for evaluation. Techniques: After informed consent was obtained, the patient was brought to the cardiac catheterization laboratory and prepped and draped in usual sterile fashion for left heart catheterization and other procedures mentioned above. The right groin was anesthetized with 1% Lidocaine and the femoral artery accessed via the Seldinger technique after which a 6Fr sheath was placed. Through this a JL4 was used to engage the left coronary artery, a JR4 to engage the right coronary artery. At the conclusion of the case the sheath was removed and hemostasis obtained with a Perclose device. Findings Findings: HEMODYNAMICS: See procedure log CORONARY ARTERIES: Rt Dominant LMCA: Luminal Irregularities LAD: 40-50% mid stenosis D1: Luminal Irregularities D2: 30-40% stenosis LCx: 20-30% proximal stenosis. OM1: Patent stent with mild ISR. OM2: Ostial 30-40% stenosis. Patent mid stent RCA: 40-50% proximal to mid stenosis PDA: Luminal Irregularities PL: Luminal Irregularities Results Results: 1. Patent OM stent without change in CAD. Moderate LAD/RCA disease 2. RFA Access, closed with VascBand RECOMMENDATIONS: 1. Recommend uptitration of max-tolerated GDMT BOB CARR MD November 23, 2024 13:17
[2024-11-23] MEDS: lisinopril 20mg tablet PO ONE (14:30)
[2024-11-23] MEDS: traMADol 50MG tablet PO ONE (14:31)
[2024-11-23] MEDS: amLODIPine 5mg tablet PO ONE (14:35)
== END 2024-11-23 15:40 | disposition home or self-care (01) ==
LOC: SSTAY O 10:13
PROVIDERS: ATTEND Student in an Organized Health Care Education/Training Program
DX: R07.9 Chest pain, unspecified (principal); I25.10 Atherosclerotic heart disease of native coronary artery without angina pectoris; E78.5 Hyperlipidemia, unspecified; E03.9 Hypothyroidism, unspecified; I12.9 Hypertensive chronic kidney disease with stage 1 through stage 4 chronic kidney disease, or unspecified chronic kidney disease; N18.9 Chronic kidney disease, unspecified; Z86.73 Personal history of transient ischemic attack (TIA), and cerebral infarction without residual deficits; Z88.8 Allergy status to other drugs, medicaments and biological substances; Z79.82 Long term (current) use of aspirin; Z87.442 Personal history of urinary calculi; Z79.899 Other long term (current) drug therapy; Z98.890 Other specified postprocedural states
CPT/HCPCS: 36415; 80048; 80061; 82948; 83695; 85025; 85610; 85730; 93005; 93454; 99152; A6258; C1760; J0360; J1644; J2003; J2250; J2270; J3010; J7030; Q9967; Z7610; J3490